=== PATIENT | male | born 1965 | race American Indian/Alaskan Native ===

== ENCOUNTER 2016-09-23 04:42 | Emergency (ER) | payer MEDICAID ==
[2016-09-23 04:43] VITALS: BMI 22.9
[2016-09-23 04:52] VITALS: BP 141/104; PULSE 113; RESP 18; TEMP 98; O2SAT 97
== END 2016-09-23 04:58 | disposition left against medical advice (07) ==
LOC: H.ER 04:42
DX: Z02.89 Encounter for other administrative examinations (principal)

== ENCOUNTER 2016-10-23 16:57 | Emergency (ER) | payer MEDICAID ==
[2016-10-23 16:57] VITALS: BMI 22.9
[2016-10-23 17:07] VITALS: BP 130/89; PULSE 110; RESP 20; TEMP 98.2; O2SAT 98
--- NOTE | 2016-10-23 17:33 | ED PDOC ---
HPI: Psych/Substance Abuse Time Seen by Provider: 10/23/16 17:01 Chief Complaint (Nursing): Alcohol Ingestion Chief Complaint (Provider): alcohol ingestion History Per: Patient (51 y/o male h/o Alcohol abuse here for slurred speech/ altered mentation. Patient was found with bottles of gin. As per EMS, patient was with brother who notes patient has h/o slurred speech and possible h/o stroke. Patient denies having a brother and denies having h/o stroke. Would like to be discharged home.) Past Medical History Reviewed: Historical Data, Nursing Documentation, Vital Signs Vital Signs: Last Vital Signs Temp 98.2 F 10/23/16 17:00 Pulse 110 H 10/23/16 17:00 Resp 20 10/23/16 17:00 BP 130/89 10/23/16 17:00 Pulse Ox 98 10/23/16 17:00 - Medical History PMH: Asthma, Depression, Diabetes, Gastritis, Gastrointestinal Ulcer, HTN, Pneumonia, Seizures - Surgical History Surgical History: Endoscopy - Family History Family History: States: Unknown Family Hx - Immunization History Hx Tetanus Toxoid Vaccination: No Hx Influenza Vaccination: Yes Hx Pneumococcal Vaccination: No - Home Medications Home Medications: Ambulatory Orders Medication Instructions Recorded No Known Home Med [No Known Home 04/15/14 Med] cloNIDine [clonidine HCl] 0.2 mg PO DAILY 01/05/16 - Allergies Allergies/Adverse Reactions: Allergies Allergy/AdvReac Type Severity Reaction Status Date / Time No Known Allergies Allergy Verified 03/16/16 18:08 Review of Systems ROS Statement: Except As Marked, All Systems Reviewed And Found Negative Physical Exam - Reviewed Nursing Documentation Reviewed: Yes Vital Signs Reviewed: Yes - Physical Exam Appears: Positive for: Well, Non-toxic, No Acute Distress Head Exam: Positive for: ATRAUMATIC, NORMAL INSPECTION, NORMOCEPHALIC Skin: Positive for: Normal Color, Warm, DRY Eye Exam: Positive for: EOMI, Normal appearance, PERRL ENT: Positive for: Normal ENT Inspection Neck: Positive for: Normal, Painless ROM Cardiovascular/Chest: Positive for: Regular Rate, Rhythm Respiratory: Positive for: CNT, Normal Breath Sounds Gastrointestinal/Abdominal: Positive for: Normal Exam, Bowel Sounds, Soft Back: Positive for: Normal Inspection Extremity: Positive for: Normal ROM Neurologic/Psych: Positive for: Alert, Oriented - ECG O2 Sat by Pulse Oximetry: 98 - Progress ED Course And Treament: Patient noted steady with gait. (Walks with cane regularly) Disposition - Clinical Impression Clinical Impression: Alcohol ingestion - Patient ED Disposition Is Patient to be Admitted: No - Disposition Disposition: Routine/Home Disposition Time: 19:28 Condition: FAIR Instructions: Alcohol Intoxication (DC)
== END 2016-10-23 19:20 | disposition home or self-care (01) ==
LOC: H.ER 16:57
DX: F10.10 Alcohol abuse, uncomplicated (principal)

== ENCOUNTER 2016-11-02 23:37 | Observation (INO) | payer MEDICAID ==
[2016-11-02 23:38] VITALS: BMI 22.9
--- NOTE | 2016-11-03 00:17 | ED PDOC ---
HPI: Psych/Substance Abuse Time Seen by Provider: 11/02/16 23:41 Chief Complaint (Nursing): Alcohol Ingestion Chief Complaint (Provider): Alcohol Ingestion ED Caveat: Intoxicated (ETOH) History/Exam Limitations: intoxication (ETOH) Onset/Duration Of Symptoms: Mins (prior to arrival) Current Symptoms Are (Timing): Still Present Additional Complaint(s): Fermin Majano is a 51 year old male who presents to the emergency department via EMS for an evaluation after he was found publicly intoxicated on the street. Unable to acquire further medical information due to intoxicated state. Patient is also well known to ED for similar symptoms. PMD: none provided Past Medical History Reviewed: Historical Data, Nursing Documentation, Vital Signs Vital Signs: Last Vital Signs Temp 98 F 11/02/16 23:47 Pulse 94 H 11/02/16 23:47 Resp 16 11/02/16 23:47 BP 115/75 11/02/16 23:47 Pulse Ox 100 11/02/16 23:47 - Medical History PMH: Asthma, Depression, Diabetes, Gastritis, Gastrointestinal Ulcer, HTN, Pneumonia, Seizures - Surgical History Surgical History: Endoscopy - Family History Family History: States: Unknown Family Hx - Social History Current smoker - smoking cessation education provided: Yes Alcohol: > 2 Drinks/Day Drugs: Denies - Immunization History Hx Tetanus Toxoid Vaccination: No Hx Influenza Vaccination: Yes Hx Pneumococcal Vaccination: No - Home Medications Home Medications: Ambulatory Orders Medication Instructions Recorded No Known Home Med [No Known Home 04/15/14 Med] cloNIDine [clonidine HCl] 0.2 mg PO DAILY 01/05/16 - Allergies Allergies/Adverse Reactions: Allergies Allergy/AdvReac Type Severity Reaction Status Date / Time No Known Allergies Allergy Verified 11/02/16 23:47 Review of Systems Review Of Systems: ROS cannot be obtained secondary to pt's inabilty to answer questions. (ETOH intoxication) Physical Exam - Reviewed Nursing Documentation Reviewed: Yes Vital Signs Reviewed: Yes - Physical Exam Appears: Positive for: Well (but intoxicated), Non-toxic, No Acute Distress Head Exam: Positive for: ATRAUMATIC, NORMAL INSPECTION, NORMOCEPHALIC Skin: Positive for: Normal Color, Warm, DRY Cardiovascular/Chest: Positive for: Regular Rate, Rhythm Respiratory: Positive for: Normal Breath Sounds Neurologic/Psych: Positive for: Alert (only to person), Other (slurred speech) - ECG O2 Sat by Pulse Oximetry: 100 (RA) Pulse Ox Interpretation: Normal Medical Decision Making Medical Decision Making: Initial Impression: ETOH abuse Initial Plan: * Alcohol serum * Drug screen, urine * Accucheck * ED OBS Scribe Attestation: Documented by Yue Briggs, acting as a scribe for Brant Crystal MD. Provider Scribe Attestation: All medical record entries made by the Scribe were at my direction and personally dictated by me. I have reviewed the chart and agree that the record accurately reflects my personal performance of the history, physical exam, medical decision making, and the department course for this patient. I have also personally directed, reviewed, and agree with the discharge instructions and disposition.
[2016-11-03 00:38] LABS: BARBITURATES, UR NEGATIVE (NEGATIVE); BENZODIAZEPINES, UR POSITIVE (NEGATIVE); OPIATES, UR NEGATIVE (NEGATIVE); PHENCYCLIDINE, UR NEGATIVE (NEGATIVE)
--- NOTE | 2016-11-03 01:18 | ED PDOC ---
HPI: Psych/Substance Abuse Time Seen by Provider: 11/02/16 23:41 Chief Complaint (Nursing): Alcohol Ingestion Chief Complaint (Provider): Alcohol Ingestion ED Caveat: Intoxicated (ETOH) History Per: EMS History/Exam Limitations: intoxication (ETOH) Onset/Duration Of Symptoms: Mins (prior to arrival) Current Symptoms Are (Timing): Still Present Additional Complaint(s): Fermin Majano is a 51 year old male with previous medical history of ETOH abuse, who presents to the emergency department via EMS after he was found publicly intoxicated. Unable to obtain further medical history due to patient's intoxicated state. Patient is well known to ED. PMD: none provided Past Medical History Reviewed: Nursing Documentation, Vital Signs Vital Signs: Last Vital Signs Temp 98 F 11/02/16 23:47 Pulse 94 H 11/02/16 23:47 Resp 16 11/02/16 23:47 BP 115/75 11/02/16 23:47 Pulse Ox 100 11/02/16 23:47 - Medical History PMH: Asthma, Depression, Diabetes, Gastritis, Gastrointestinal Ulcer, HTN, Pneumonia, Seizures - Surgical History Surgical History: Endoscopy - Family History Family History: States: Unknown Family Hx - Social History Current smoker - smoking cessation education provided: Yes Alcohol: > 2 Drinks/Day Drugs: Denies - Immunization History Hx Tetanus Toxoid Vaccination: No Hx Influenza Vaccination: Yes Hx Pneumococcal Vaccination: No - Home Medications Home Medications: Ambulatory Orders Medication Instructions Recorded No Known Home Med [No Known Home 04/15/14 Med] cloNIDine [clonidine HCl] 0.2 mg PO DAILY 01/05/16 - Allergies Allergies/Adverse Reactions: Allergies Allergy/AdvReac Type Severity Reaction Status Date / Time No Known Allergies Allergy Verified 11/02/16 23:47 Review of Systems Review Of Systems: ROS cannot be obtained secondary to pt's inabilty to answer questions. (ETOH intoxication) Physical Exam - Reviewed Nursing Documentation Reviewed: Yes Vital Signs Reviewed: Yes - Physical Exam Appears: Positive for: Well (but intoxicated), Non-toxic, No Acute Distress Head Exam: Positive for: ATRAUMATIC, NORMAL INSPECTION, NORMOCEPHALIC Skin: Positive for: Normal Color, Warm, DRY Cardiovascular/Chest: Positive for: Regular Rate, Rhythm Respiratory: Positive for: CNT, Normal Breath Sounds Neurologic/Psych: Positive for: Alert (only to person), Other (slurred speech) - ECG O2 Sat by Pulse Oximetry: 100 (RA) Pulse Ox Interpretation: Normal Medical Decision Making Medical Decision Making: Initial Impression: ETOH intoxication Initial Plan: * [place] * ED OBS Time: 07:00 --Patient signed out to Dr. Denise Mak. Pending clinical sobriety. Scribe Attestation: Documented by Yue Briggs, acting as a scribe for Brant Crystal MD. Provider Scribe Attestation: All medical record entries made by the Scribe were at my direction and personally dictated by me. I have reviewed the chart and agree that the record accurately reflects my personal performance of the history, physical exam, medical decision making, and the department course for this patient. I have also personally directed, reviewed, and agree with the discharge instructions and disposition. ED OBSERVATION Date of observation admission: 11/03/16 Time of observation admission: 23:53 - Observation admission statement Patient is being placed in observation because:: ETOH intoxication - Goals of Observation Goals of observation are:: Clinical sobriety - Progress Note Progress Note: Time: 01:30 --Patient is resting comfortably and vitals signs are stable. Time: 3:00 --Patient continues to rest comfortably. Vitals remain stable. Time: 04:30 --Vitals are stable. Time: 06:00 --Vitals remain stable. Disposition - Clinical Impression Clinical Impression: ETOH abuse - Patient ED Disposition Is Patient to be Admitted: Transfer of Care - Disposition Disposition: Transfer of Care Disposition Time: 23:53 Condition: IMPROVED Patient Signed Over To: Denise Mak
[2016-11-03 06:15] VITALS: RESP 18
[2016-11-03 06:23] VITALS: O2SAT 100
--- NOTE | 2016-11-03 07:20 | ED PDOC ---
- ECG O2 Sat by Pulse Oximetry: 100 (RA) Pulse Ox Interpretation: Normal Medical Decision Making Medical Decision Making: Time: 07:00 --Patient is signed out by Brant Crystal MD to me, pending sobriety Time: 07:30 --Patient continues to rest comfortably. Vitals remain stable. Time: 09:00 --Patient continues to rest comfortably. Vital signs remain stable. Time: 10:30 --Patient continues to rest comfortably. Vitals remain stable. Time: 12:00 --Patient is resting comfortably. Vital signs remain stable. Time: 13:53 --Patient is clinically sober, medically stable, sober, ambulating awake and alert, stable vitals and ready for discharge home. Scribe Attestation: Documented by Luann Anderson, acting as a scribe for Denise Mak MD Provider Scribe Attestation: All medical record entries made by the Scribe were at my direction and personally dictated by me. I have reviewed the chart and agree that the record accurately reflects my personal performance of the history, physical exam, medical decision making, and the department course for this patient. I have also personally directed, reviewed, and agree with the discharge instructions and disposition. Disposition Counseled Patient/Family Regarding: Diagnosis, Need For Followup - Clinical Impression Clinical Impression: ETOH abuse - POA Present On Arrival: None - Disposition Disposition: Routine/Home Disposition Time: 13:53 Condition: IMPROVED
[2016-11-03 13:32] VITALS: BP 150/97; PULSE 89; TEMP 98.5
== END 2016-11-03 14:23 | disposition home or self-care (01) ==
LOC: H.ER 23:37 → H.EROBSV 23:57
PROVIDERS: ADMIT Emergency Medicine; ATTEND Emergency Medicine
DX: F10.129 Alcohol abuse with intoxication, unspecified (principal); Y90.9 Presence of alcohol in blood, level not specified; E11.9 Type 2 diabetes mellitus without complications; I10 Essential (primary) hypertension; J45.909 Unspecified asthma, uncomplicated; Z87.11 Personal history of peptic ulcer disease; F32.9 Major depressive disorder, single episode, unspecified; Z87.01 Personal history of pneumonia (recurrent); R56.9 Unspecified convulsions; F17.200 Nicotine dependence, unspecified, uncomplicated

== ENCOUNTER 2016-11-21 01:36 | Inpatient (IN) | payer MEDICAID ==
[2016-11-21 01:36] VITALS: BMI 22.9
[2016-11-21] MEDS ORDERED: Sodium Chloride 0.9% 1,000 ML IV STA (01:51)
[2016-11-21] MEDS ORDERED: Sterile Water 10 ML IV ONE (01:56)
[2016-11-21 02:39] LABS: BASO # 0.1 K/uL (0.0-0.2); BASO % 2.7 % (0.0-2.0); EOS % 0.4 % (0.0-4.0); HEMOGLOBIN 12.9 g/dL (12.0-18.0); LYMPH # 1.3 K/uL (1.0-4.3); LYMPH % 41.5 % (20.0-40.0); MEAN CELL VOLUME 99.1 fl (80.0-94.0); MEAN CORPUSCULAR HEMOGLOBIN 33.6 pg (27.0-31.0); MEAN CORPUSCULAR HGB CONC 33.9 g/dL (33.0-37.0); MEAN PLATELET VOLUME 7.6 fl (7.2-11.7); MONO # 0.4 K/uL (0.0-0.8); MONO % 10.8 % (0.0-10.0); NEUT # 1.4 K/uL (1.8-7.0); NEUT % 44.6 % (50.0-75.0); RBC 3.85 Mil/uL (4.40-5.90); RED CELL DISTRIBUTION WIDTH 18.7 % (11.5-14.5); WHITE BLOOD COUNT 3.2 K/uL (4.8-10.8)
[2016-11-21 03:11] LABS: BLOOD UREA NITROGEN 4 mg/dl (9-20)
[2016-11-21 03:12] LABS: ALB/GLOB RATIO 1.2 (1.0-2.1); ALBUMIN 4.6 g/dL (3.5-5.0); CALCIUM 8.7 mg/dL (8.4-10.2); GFR AFRICAN-AMERICAN > 60; GFR NON-AFRICAN AMERICAN > 60
[2016-11-21 03:13] LABS: ALT/SGPT 90 U/L (21-72); AST/SGOT 160 U/L (17-59); LIPASE 466 U/L (23-300)
--- NOTE | 2016-11-21 04:15 | ED PDOC ---
HPI: Abdomen Time Seen by Provider: 11/21/16 01:50 Chief Complaint (Nursing): GI Problem Chief Complaint (Provider): Vomiting blood x 3 hours History Per: Patient History/Exam Limitations: no limitations Onset/Duration Of Symptoms: Hrs Outside of [place] travel?: No Current Symptoms Are (Timing): Still Present Context: Other (Alcohol abuse ) Location Of Pain/Discomfort: Epigastric Quality Of Discomfort: Sharp Associated Symptoms: Nausea, Vomiting. denies: Fever, Chills, Loss Of Appetite Past Medical History Reviewed: Historical Data, Nursing Documentation, Vital Signs Vital Signs: Last Vital Signs Temp 98.0 F 11/21/16 06:05 Pulse 88 11/21/16 06:05 Resp 16 11/21/16 06:05 BP 141/89 11/21/16 06:05 Pulse Ox 97 11/21/16 06:05 - Medical History PMH: Asthma, Depression, Diabetes, Gastritis, Gastrointestinal Ulcer, HTN, Pneumonia, Seizures - Surgical History Surgical History: Endoscopy - Family History Family History: States: Unknown Family Hx - Immunization History Hx Tetanus Toxoid Vaccination: No Hx Influenza Vaccination: Yes Hx Pneumococcal Vaccination: No - Home Medications Home Medications: Ambulatory Orders Medication Instructions Recorded No Known Home Med [No Known Home 04/15/14 Med] cloNIDine [clonidine HCl] 0.2 mg PO DAILY 01/05/16 - Allergies Allergies/Adverse Reactions: Allergies Allergy/AdvReac Type Severity Reaction Status Date / Time No Known Allergies Allergy Verified 11/02/16 23:47 Review of Systems ROS Statement: Except As Marked, All Systems Reviewed And Found Negative Constitutional: Negative for: Fever, Chills Gastrointestinal: Positive for: Nausea, Vomiting, Abdominal Pain Physical Exam - Reviewed Nursing Documentation Reviewed: Yes Vital Signs Reviewed: Yes - Physical Exam Appears: Positive for: Well, Non-toxic, No Acute Distress Head Exam: Positive for: ATRAUMATIC, NORMAL INSPECTION, NORMOCEPHALIC Skin: Positive for: Normal Color, Warm, DRY Eye Exam: Positive for: Normal appearance, EOMI, PERRL ENT: Positive for: Normal ENT Inspection Neck: Positive for: Normal, Painless ROM Cardiovascular/Chest: Positive for: Regular Rate, Rhythm Respiratory: Positive for: CNT, Normal Breath Sounds Gastrointestinal/Abdominal: Positive for: Bowel Sounds, Soft, Tenderness (Mild epigastric ). Negative for: Normal Exam Back: Positive for: Normal Inspection Extremity: Positive for: Normal ROM Neurologic/Psych: Positive for: Alert, Oriented - Laboratory Results Result Diagrams: 11/21/16 02:35 11/21/16 02:35 - ECG O2 Sat by Pulse Oximetry: 100 Medical Decision Making Medical Decision Making: Dr. Chicas discussed with Dr. Madison for observation admission. Disposition - Clinical Impression Clinical Impression: Pancreatitis, Alcohol abuse - Patient ED Disposition Is Patient to be Admitted: Yes - Disposition Disposition: Routine/Home Disposition Time: 06:12 Condition: GOOD - Pt Status Changed To: Hospital Disposition Of: Observation - POA Present On Arrival: None
[2016-11-21] MEDS ORDERED: Iohexol 300 100 ML IJ ONE (04:17)
[2016-11-21] MEDS ORDERED: Sodium Chloride 0.9% 50 ML IV ONE (04:18)
--- NOTE | 2016-11-21 05:33 | CT ---
EXAM: CT Abdomen and Pelvis With Intravenous Contrast CLINICAL HISTORY: 51 years old, male; Pain; Abdominal pain; Epigastric; Additional info: Epigastric pain, elevated lipase, HX ETOH abuse TECHNIQUE: Axial computed tomography images of the abdomen and pelvis with intravenous contrast. This CT exam was performed using one or more of the following dose reduction techniques: automated exposure control, adjustment of the mA and/or kV according to patient size, and/or use of iterative reconstruction technique. Coronal and sagittal reformatted images were created and reviewed. CONTRAST: 90 mL of [id number] administered intravenously. COMPARISON: No relevant prior studies available. FINDINGS: Limitations: Motion artifact - mild. Lower thorax: Minimal atelectasis/scarring. 0.6 cm LEFT lower lobe nodule. ABDOMEN: Liver: Fatty infiltration. Gallbladder and bile ducts: No calcified stones. No ductal dilation. Pancreas: Mild prominence of proximal pancreatic duct. Mild fullness tail of pancreas. Spleen: No splenomegaly. Adrenals: No mass. Kidneys and ureters: No mass. No hydronephrosis. Stomach and bowel: Segmental areas of mild mural thickening vs underdistention of large bowel. No associated inflammatory stranding. No obstruction. Appendix: Normal caliber. No inflammation. PELVIS: Bladder: Unremarkable. Reproductive: Mildly enlarged prostate. ABDOMEN and PELVIS: Intraperitoneal space: No significant fluid collection. No free air. Bones/joints: Postsurgical changes of RIGHT femur. Degenerative changes of hips and spine. No acute fracture. Soft tissues: Unremarkable. Vasculature: Unremarkable. No aneurysm. Lymph nodes: No pathologically enlarged lymph nodes. IMPRESSION: 2. Mild prominence of pancreatic duct with fullness tail of pancreas. Clinical correlation is needed. 2. Mild colitis vs underdistention. Favor underdistention. Clinical correlation is needed. 3. Prostate enlargement. Followup as clinically warranted. 4. Pulmonary nodules. For low-risk patients, no follow-up is necessary. For high-risk patients (smoking history or other known risk factors) an optional CT at 12 months could be performed. 5. Incidental/non-acute findings are described above.
[2016-11-21] MEDS ORDERED: Morphine 4 MG/ML VIAL IV STA (06:12)
[2016-11-21] MEDS ORDERED: Morphine 4 MG/ML VIAL ONE (06:34)
[2016-11-21] MEDS ORDERED: Pneumococcal 23-Valent Vaccine IM ONE (09:43)
[2016-11-21] MEDS: Dextrose 5%/0.9% NS 1,000 ML IV SCH ×3 (11:17→23:48)
--- NOTE | 2016-11-21 21:52 | CON ---
DATE OF SERVICE: 11/21/2016 REFERRING PHYSICIAN: *------* REASON FOR CONSULTATION: Pancreatitis, abdominal pain. HISTORY OF PRESENT ILLNESS: This is a 51-year-old poor historian with a history of alcohol use and abuse, last drink was yesterday with high alcohol level on admission, has epigastric discomfort with some nausea and vomiting. The patient cannot give a good history, but has been drinking heavily, frequently, often, and daily, currently lying in bed comfortably and wants his "pain pills" and "I want some food." No apparent distress. PAST MEDICAL HISTORY: Asthma, depression, diabetes, gastritis, hypertension, pneumonia, seizures. PAST SURGICAL HISTORY: Negative. FAMILY HISTORY: Noncontributory. REVIEW OF SYSTEMS: All other systems have been reviewed and negative apart from HPI. PHYSICAL EXAMINATION: VITAL SIGNS: In the hospital, grossly unremarkable. GENERAL: Pleasant, elderly appearing male, lying comfortably on bed, in no apparent distress. HEENT: Normocephalic, atraumatic. Eyes, pupils equal, round, and reactive to light bilaterally. No conjunctival pallor or icterus. NECK: Supple. Normal range of motion. No lymphadenopathy appreciated. LUNGS: Coarse breath sounds bilaterally. HEART: S1, S2, regular rate and rhythm. No murmurs appreciated. ABDOMEN: Soft, nontender, bowel sounds present. No rebound. No guarding. RECTAL: Deferred. EXTREMITIES: Pulses felt bilaterally. SKIN: Warm, dry, and intact. NEUROLOGIC: A and O x3. Radiology and labs have been reviewed. Mild problem with pancreatic duct and tail of the pancreas, mild collaterals and distention, pulmonary nodules. Labs include WBC 3.3, hemoglobin 12.9, platelet count of 207, alcohol was positive, lipase is 466, AST/ALT of *------*. ASSESSMENT AND PLAN: This is a 51-year-old male with alcoholic pancreatitis. Aggressive IV hydration, pain control as needed. Advance diet as tolerated. Thank you for the consult. Bandar Hernandes MD/ PhD
--- NOTE | 2016-11-21 23:17 | CP.PCM.HP ---
Past Patient History - Infectious Disease Hx of Infectious Diseases: None - Tetanus Immunizations Tetanus Immunization: Unknown - Past Medical History & Family History Past Medical History?: Yes - Past Social History Smoking Status: Never Smoked - CARDIAC Hx Hypertension: Yes - PULMONARY Hx Asthma: Yes Hx Pneumonia: Yes - NEUROLOGICAL Hx Seizures: Yes - HEENT Hx HEENT Problems: No - ENDOCRINE/METABOLIC Hx Endocrine Disorders: No - HEMATOLOGICAL/ONCOLOGICAL Hx Blood Disorders: No - INTEGUMENTARY Hx Dermatological Problems: No - MUSCULOSKELETAL/RHEUMATOLOGICAL Hx Falls: No - GASTROINTESTINAL Hx Gastritis: Yes - GENITOURINARY/GYNECOLOGICAL Hx Genitourinary Disorders: No - PSYCHIATRIC Hx Depression: Yes - SURGICAL HISTORY Hx Surgeries: Yes - ANESTHESIA Hx Anesthesia: Yes Hx Anesthesia Reactions: No Hx Malignant Hyperthermia: No Meds Allergies/Adverse Reactions: Allergies Allergy/AdvReac Type Severity Reaction Status Date / Time No Known Allergies Allergy Verified 11/02/16 23:47 Results - Vital Signs Recent Vital Signs: Last Vital Signs Temp 98.4 F 11/21/16 16:09 Pulse 93 H 11/21/16 16:24 Resp 18 11/21/16 16:09 BP 143/85 11/21/16 16:24 Pulse Ox 98 11/21/16 16:09 - Labs Result Diagrams: 11/21/16 02:35 11/21/16 02:35 Labs: Laboratory Results - last 24 hr 11/21/16 11/21/16 11:39 11:39 Alpha Fetoprotein 7.1 Carcinoembryonic Ag 29.2 H CA 19-9 Antigen < 1.4
[2016-11-22] MEDS: Dextrose 5%/0.9% NS 1,000 ML IV SCH (06:48)
[2016-11-22 07:46] LABS: BASO % 0.7 % (0.0-2.0); EOS % 0.2 % (0.0-4.0); HEMOGLOBIN 12.3 g/dL (12.0-18.0); LYMPH # 0.7 K/uL (1.0-4.3); LYMPH % 15.7 % (20.0-40.0); MEAN CELL VOLUME 99.8 fl (80.0-94.0); MEAN CORPUSCULAR HEMOGLOBIN 33.8 pg (27.0-31.0); MEAN CORPUSCULAR HGB CONC 33.9 g/dL (33.0-37.0); MEAN PLATELET VOLUME 7.9 fl (7.2-11.7); MONO # 0.4 K/uL (0.0-0.8); MONO % 9.5 % (0.0-10.0); NEUT # 3.2 K/uL (1.8-7.0); NEUT % 73.9 % (50.0-75.0); RBC 3.62 Mil/uL (4.40-5.90); RED CELL DISTRIBUTION WIDTH 18.3 % (11.5-14.5); WHITE BLOOD COUNT 4.3 K/uL (4.8-10.8)
[2016-11-22 07:47] LABS: ALB/GLOB RATIO 1.3 (1.0-2.1); ALBUMIN 4.1 g/dL (3.5-5.0); ALT/SGPT 82 U/L (21-72); AST/SGOT 113 U/L (17-59); BLOOD UREA NITROGEN 3 mg/dl (9-20); CALCIUM 8.2 mg/dL (8.4-10.2); GFR AFRICAN-AMERICAN > 60; GFR NON-AFRICAN AMERICAN > 60
[2016-11-22] MEDS ORDERED: Enoxaparin 40 mg Syringe SC SCH (09:00)
[2016-11-22] MEDS: Pantoprazole 40 mg EC Tab PO SCH (09:45)
--- NOTE | 2016-11-22 23:44 | CP.PCM.PN ---
Subjective - Date & Time of Evaluation Date of Evaluation: 11/22/16 Time of Evaluation: 23:35 Objective - Vital Signs/Intake and Output Vital Signs (last 24 hours): Temp Pulse Resp BP Pulse Ox 98.7 F 81 18 123/76 100 11/22/16 16:19 11/22/16 16:19 11/22/16 16:19 11/22/16 18:04 11/22/16 16:19 - Medications Medications: Current Medications Chlordiazepoxide (Librium) 10 mg PO Q6 [facility] Last Admin: 11/22/16 21:22 Dose: 10 mg Clonidine HCl (Catapres) 0.2 mg PO BID [facility] Last Admin: 11/22/16 18:04 Dose: 0.2 mg Folic Acid (Folic Acid) 1 mg PO DAILY [facility] Last Admin: 11/22/16 09:45 Dose: 1 mg Ketorolac Tromethamine (Toradol) 15 mg IVP Q6 PRN PRN Reason: Pain, severe (8-10) Last Admin: 11/22/16 18:01 Dose: 15 mg Loratadine (Claritin) 10 mg PO DAILY [facility] Last Admin: 11/22/16 13:40 Dose: 10 mg Pantoprazole Sodium (Protonix Ec Tab) 40 mg PO DAILY [facility] Last Admin: 11/22/16 09:45 Dose: 40 mg Thiamine HCl (Vitamin B1 Tab) 100 mg PO DAILY [facility] Last Admin: 11/22/16 09:45 Dose: 100 mg - Labs Labs: 11/22/16 05:30 11/22/16 05:30
[2016-11-23 08:39] VITALS: O2SAT 100
[2016-11-23] MEDS: Pantoprazole 40 mg EC Tab PO SCH (08:56)
--- NOTE | 2016-11-23 19:08 | CP.PCM.PN ---
Subjective - Date & Time of Evaluation Date of Evaluation: 11/23/16 Time of Evaluation: 19:00 Objective - Vital Signs/Intake and Output Vital Signs (last 24 hours): Temp Pulse Resp BP Pulse Ox 98.4 F 65 20 144/89 100 11/23/16 08:39 11/23/16 17:54 11/23/16 08:39 11/23/16 17:54 11/23/16 08:39 - Medications Medications: Current Medications Chlordiazepoxide (Librium) 10 mg PO Q6 [facility] Last Admin: 11/23/16 17:57 Dose: 10 mg Clonidine HCl (Catapres) 0.2 mg PO BID [facility] Last Admin: 11/23/16 17:54 Dose: 0.2 mg Folic Acid (Folic Acid) 1 mg PO DAILY [facility] Last Admin: 11/23/16 08:56 Dose: 1 mg Ketorolac Tromethamine (Toradol) 15 mg IVP Q6 PRN PRN Reason: Pain, severe (8-10) Last Admin: 11/23/16 17:50 Dose: 15 mg Loratadine (Claritin) 10 mg PO DAILY [facility] Last Admin: 11/23/16 08:56 Dose: 10 mg Pantoprazole Sodium (Protonix Ec Tab) 40 mg PO DAILY [facility] Last Admin: 11/23/16 08:56 Dose: 40 mg Thiamine HCl (Vitamin B1 Tab) 100 mg PO DAILY [facility] Last Admin: 11/23/16 08:56 Dose: 100 mg - Labs Labs: 11/22/16 05:30 11/22/16 05:30
[2016-11-24 08:07] VITALS: BP 166/98; PULSE 58; RESP 20; TEMP 97.9
[2016-11-24] MEDS: Pantoprazole 40 mg EC Tab PO SCH (09:06)
--- NOTE | 2016-11-24 23:59 | CP.PCM.DIS ---
Provider - Provider Date of Admission: 11/21/16 06:13 Attending physician: Abida Madison MD Time Spent in preparation of Discharge (in minutes): 25 Hospital Course - Lab Results Lab Results: Most Recent Lab Values WBC 4.3 K/uL (4.8-10.8) L 11/22/16 05:30 RBC 3.62 Mil/uL (4.40-5.90) L 11/22/16 05:30 Hgb 12.3 g/dL (12.0-18.0) 11/22/16 05:30 Hct 36.2 % (35.0-51.0) 11/22/16 05:30 MCV 99.8 fl (80.0-94.0) H 11/22/16 05:30 MCH 33.8 pg (27.0-31.0) H 11/22/16 05:30 MCHC 33.9 g/dL (33.0-37.0) 11/22/16 05:30 RDW 18.3 % (11.5-14.5) H 11/22/16 05:30 Plt Count 177 K/uL (130-400) 11/22/16 05:30 MPV 7.9 fl (7.2-11.7) 11/22/16 05:30 Neut % (Auto) 73.9 % (50.0-75.0) 11/22/16 05:30 Lymph % (Auto) 15.7 % (20.0-40.0) L 11/22/16 05:30 Angelina % (Auto) 9.5 % (0.0-10.0) 11/22/16 05:30 Eos % (Auto) 0.2 % (0.0-4.0) 11/22/16 05:30 Baso % (Auto) 0.7 % (0.0-2.0) 11/22/16 05:30 Neut # 3.2 K/uL (1.8-7.0) 11/22/16 05:30 Lymph # 0.7 K/uL (1.0-4.3) L 11/22/16 05:30 Angelina # 0.4 K/uL (0.0-0.8) 11/22/16 05:30 Eos # 0.0 K/uL (0.0-0.7) 11/22/16 05:30 Baso # 0.0 K/uL (0.0-0.2) 11/22/16 05:30 Sodium 131 mmol/l (132-148) L 11/22/16 05:30 Potassium 3.6 MMOL/L (3.6-5.0) 11/22/16 05:30 Chloride 99 mmol/L (98-107) 11/22/16 05:30 Carbon Dioxide 25 mmol/L (22-30) 11/22/16 05:30 Anion Gap 11 (10-20) 11/22/16 05:30 BUN 3 mg/dl (9-20) L 11/22/16 05:30 Creatinine 0.6 mg/dL (0.8-1.5) L 11/22/16 05:30 Est GFR ( Amer) > 60 11/22/16 05:30 Est GFR (Non-Af Amer) > 60 11/22/16 05:30 Random Glucose 103 mg/dL (75-110) 11/22/16 05:30 Calcium 8.2 mg/dL (8.4-10.2) L 11/22/16 05:30 Total Bilirubin 0.9 mg/dl (0.2-1.3) 11/22/16 05:30 AST 113 U/L (17-59) H D 11/22/16 05:30 ALT 82 U/L (21-72) H 11/22/16 05:30 Alkaline Phosphatase 63 U/L (38-126) 11/22/16 05:30 Total Protein 7.2 G/DL (6.3-8.2) 11/22/16 05:30 Albumin 4.1 g/dL (3.5-5.0) 11/22/16 05:30 Globulin 3.1 gm/dL (2.2-3.9) 11/22/16 05:30 Albumin/Globulin Ratio 1.3 (1.0-2.1) 11/22/16 05:30 Lipase 466 U/L (23-300) H 11/21/16 02:35 Alpha Fetoprotein 7.1 IU/mL (0.0-7.22) 11/21/16 11:39 Carcinoembryonic Ag 29.2 ng/mL (0-3.0) H 11/21/16 11:39 CA 19-9 Antigen < 1.4 U/mL (0-37) 11/21/16 11:39 Stool Occult Blood Positive (NEGATIVE) H 11/21/16 06:05 Alcohol, Quantitative 395 mg/dl (0-10) H* 11/21/16 02:35 Discharge Exam - Head Exam Head Exam: ATRAUMATIC, NORMAL INSPECTION, NORMOCEPHALIC Discharge Plan - Follow Up Plan Condition: GOOD Disposition: HOME/ ROUTINE Instructions: Pancreatitis (DC)
--- NOTE | 2016-11-26 21:47 | CP.PCM.PN ---
Subjective - Date & Time of Evaluation Date of Evaluation: 11/24/16 Time of Evaluation: 20:00 - Subjective Subjective: pain improved Objective - Vital Signs/Intake and Output Vital Signs (last 24 hours): Temp Pulse Resp BP Pulse Ox 97.9 F 58 L 20 166/98 H 100 11/24/16 08:06 11/24/16 09:03 11/24/16 08:06 11/24/16 09:03 11/24/16 08:06 - Labs Labs: 11/22/16 05:30 11/22/16 05:30 - GI/Abdominal Exam GI & Abdominal Exam: Soft, Normal Bowel Sounds Assessment and Plan - Assessment and Plan (Free Text) Assessment: 51 yo male with etoh pancreatitis advance diet dc planning
== END 2016-11-24 10:00 | disposition home or self-care (01) | DRG 204 ==
LOC: H.ER 01:36 → OBSVTOIN 06:13 → H.ERHOLD 06:13 → H.MEDSURG1 08:39
PROVIDERS: ADMIT Internal Medicine; ATTEND Internal Medicine
PROC: 3E0234Z Introduction of Serum, Toxoid and Vaccine into Muscle, Percutaneous Approach (ICD-10-PCS; principal; 2016-11-21)
DX: K85.20 Alcohol induced acute pancreatitis without necrosis or infection (principal); R56.9 Unspecified convulsions; E11.9 Type 2 diabetes mellitus without complications; F10.129 Alcohol abuse with intoxication, unspecified; Y90.8 Blood alcohol level of 240 mg/100 ml or more; I10 Essential (primary) hypertension; K29.70 Gastritis, unspecified, without bleeding; J45.909 Unspecified asthma, uncomplicated; F32.9 Major depressive disorder, single episode, unspecified; Z23 Encounter for immunization; Z87.11 Personal history of peptic ulcer disease; Z87.01 Personal history of pneumonia (recurrent)

== ENCOUNTER 2017-05-30 18:52 | Emergency (ER) | payer MEDICAID ==
[2017-05-30 18:53] VITALS: BMI 22.9
[2017-05-30 18:57] VITALS: RESP 16
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
--- NOTE | 2017-05-30 21:06 | RAD ---
EXAM: XR Left Hip With Pelvis When Performed, 2 or 3 Views CLINICAL HISTORY: 52 years old, male; Injury or trauma; Fall; Initial encounter; Blunt trauma (contusions or hematomas); Left; Hip; Additional info: Hip injury TECHNIQUE: Two or three views of the left hip, with pelvis when performed. COMPARISON: No relevant prior studies available. FINDINGS: Bones/joints: No acute fracture. Postsurgical changes of right femur. Mild heterotopic ossification about right proximal femur. Severe degenerative changes of left hip joint. No dislocation. Focal ossification along left proximal femur, nonspecific. Soft tissues: Unremarkable. Vasculature: Several rounded calcifications within pelvis, most likely phleboliths. IMPRESSION: 1. No fracture. 2. If hip pain persists, consider MRI to exclude occult fracture/internal derangement. 3. Incidental/non-acute findings are described above.
--- NOTE | 2017-05-30 21:09 | RAD ---
EXAM: XR Left Knee, 3 views CLINICAL HISTORY: 52 years old, male; Injury or trauma; Fall; Initial encounter; Blunt trauma; Knee; Left; Prior surgery; Surgery date: 6+ months; Additional info: Knee injury TECHNIQUE: Three views of the left knee. COMPARISON: No relevant prior studies available. FINDINGS: Bones/joints: No acute fracture. Intramedullary nail fixation of tibia. Focal ossification/callus formation about mid tibial and fibular diaphyses. Focal ossification about anterior proximal tibia. Minimal ossification about distal interlocking screw. Fusion across proximal tibiofibular joint. Mild osteoarthrosis of patellofemoral compartment. No dislocation. No significant joint effusion. Soft tissues: Unremarkable. IMPRESSION: 1. No fracture. 2. If pain persists, suggest MRI to evaluate for occult fracture/internal arrangement. 3. Incidental/non-acute findings are described above.
--- NOTE | 2017-05-31 00:29 | ED PDOC ---
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 BAL is 315 1:30 am: patient is asleep, arousable. vital signs stable 3:30 am: patient is asleep, arousable, vital signs stable 4:30 am: patient is requesting pain medicine for his hip, motrin 600 mg PO ordered. 6:00 am: patient is awake and alert, has steady gait, stable for discharge Disposition - Clinical Impression Clinical Impression: Hip pain, Alcohol intoxication - POA Present On Arrival: None - Disposition Referrals: LTAC, [facility] within [facility] [Outside] Disposition: Routine/Home Disposition Time: 04:44 Condition: STABLE Instructions: Alcohol Intoxication (ED), Hip Pain (ED) Forms: [facility] (French)
[2017-05-31 06:35] VITALS: BP 118/74; PULSE 84; TEMP 98; O2SAT 96
== END 2017-05-31 06:36 | disposition home or self-care (01) ==
LOC: H.ER 18:52
DX: M25.552 Pain in left hip (principal); F10.129 Alcohol abuse with intoxication, unspecified; E11.9 Type 2 diabetes mellitus without complications; I10 Essential (primary) hypertension; Z86.59 Personal history of other mental and behavioral disorders; J45.909 Unspecified asthma, uncomplicated

== ENCOUNTER 2017-06-15 21:16 | Emergency (ER) | payer MEDICAID ==
[2017-06-15 21:16] VITALS: BMI 22.9
[2017-06-15 21:21] VITALS: PULSE 82; O2SAT 97
[2017-06-15 22:52] LABS: PHENCYCLIDINE, UR NEGATIVE (NEGATIVE)
[2017-06-15 23:03] LABS: BARBITURATES, UR NEGATIVE (NEGATIVE); BENZODIAZEPINES, UR NEGATIVE (NEGATIVE)
[2017-06-15 23:11] LABS: OPIATES, UR NEGATIVE (NEGATIVE)
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
--- NOTE | 2017-06-16 00:26 | CT ---
EXAM: CT Head Without Intravenous Contrast CLINICAL HISTORY: 52 years old, male; Injury or trauma; Fall; Initial encounter; Concussion / head injury; Consciousness not specified; Additional info: S/P fall, intox TECHNIQUE: Axial computed tomography images of the head/brain without intravenous contrast. All CT scans at this facility use one or more dose reduction techniques, viz.: automated exposure control; ma/kV adjustment per patient size (including targeted exams where dose is matched to indication; i.e. head); or iterative reconstruction technique. Coronal and sagittal reformatted images were created and reviewed. COMPARISON: No relevant prior studies available. FINDINGS: Brain: Mild atrophy. No intracranial hemorrhage. No mass. Few scattered foci of decreased attenuation within periventricular/subcortical white matter. No edema. Ventricles: No hydrocephalus. Bones/joints: No acute fracture. Soft tissues: Multifocal scalp swelling. Few small calcifications along frontal scalp. Sinuses: Mild focal mucosal thickening +/- fluid of LEFT maxillary sinus. Mastoid air cells: No mastoid effusion. Orbits: Unremarkable as visualized. IMPRESSION: 1. No intracranial hemorrhage. 2. Nonspecific white matter changes. 3. Incidental/non-acute findings are described above.
--- NOTE | 2017-06-16 00:31 | CT ---
EXAM: CT Cervical Spine Without Intravenous Contrast CLINICAL HISTORY: 52 years old, male; Injury or trauma; Fall; Initial encounter; Concussion /head injury; Additional info: S/P fall, intox TECHNIQUE: Axial computed tomography images of the cervical spine without intravenous contrast. All CT scans at this facility use one or more dose reduction techniques, viz.: automated exposure control; ma/kV adjustment per patient size (including targeted exams where dose is matched to indication; i.e. head); or iterative reconstruction technique. Coronal and sagittal reformatted images were created and reviewed. COMPARISON: No relevant prior studies available. FINDINGS: Vertebrae: No acute fracture. Degenerative retrolithesis of lower cervical spine. Mild facet osteoarthrosis. Discs/spinal canal/neural foramina: Moderate degenerative disc disease within upper cervical spine. Early degenerative disc disease within mid cervical spine. Moderate degenerative disc disease within lower cervical spine. Mild indentation thecal sac/cord upper cervical spine. Moderate indentation thecal sac/cord lower cervical spine. Neuroforaminal narrowing with upper and and lower cervical spine. Other bones/joints: Postsurgical changes of mandible. Soft tissues: Unremarkable. Vasculature: Minimal to mild atherosclerotic disease of carotid arteries. Sinuses: Focal mucosal thickening +/- fluid of visualized LEFT maxillary sinus. Lung apices: Unremarkable as visualized. IMPRESSION: 1. No fracture. 2. Incidental/non-acute findings are described above.
[2017-06-16 06:28] VITALS: BP 127/78; RESP 14; TEMP 98.3
--- NOTE | 2017-06-16 09:16 | RAD ---
PROCEDURE: Left Hip X-ray Radiographs. HISTORY: s/p fall COMPARISON: Left hip radiographs dated 05/30/2017. FINDINGS: There has been prior open reduction internal fixation of the right femur with hardware seen intact. Heterotopic ossification is seen superficial to the right greater trochanter. Severe left hip osteoarthritic change is redemonstrated. No acute fracture is evident. The sacroiliac joints are intact. Evaluation the sacrum is limited by overlying bowel gas and stool. The ilioischial and iliopectineal lines are smooth. The symphysis pubis is normal. IMPRESSION: No acute fracture. Severe left hip osteoarthritic change.
--- NOTE | 2017-06-16 09:18 | RAD ---
PROCEDURE: Left Knee Radiographs. HISTORY: Pain. COMPARISON: None. FINDINGS: BONES: Partially imaged tibial orthopedic hardware. No acute fracture. Heterotopic calcification anterior to the tibial plateau. JOINTS: Unchanged. JOINT EFFUSION: None. OTHER FINDINGS: None. IMPRESSION: No acute fracture. No significant interval change.
== END 2017-06-16 06:29 | disposition home or self-care (01) ==
LOC: H.ER 21:16
DX: F10.129 Alcohol abuse with intoxication, unspecified (principal); S09.90XA Unspecified injury of head, initial encounter; T07.XXXA Unspecified multiple injuries, initial encounter; W19.XXXA Unspecified fall, initial encounter; Y92.89 Other specified places as the place of occurrence of the external cause; E11.9 Type 2 diabetes mellitus without complications; I10 Essential (primary) hypertension; M16.12 Unilateral primary osteoarthritis, left hip

== ENCOUNTER 2017-06-24 14:15 | Emergency (ER) | payer MEDICAID ==
[2017-06-24 14:15] VITALS: BMI 22.9
[2017-06-24 14:19] VITALS: RESP 18; TEMP 97
--- NOTE | 2017-06-24 15:35 | ED PDOC ---
HPI: Trauma/Fall - HPI Time Seen by Provider: 06/24/17 15:24 Chief Complaint (Nursing): Weakness/Neurological Deficit Chief Complaint (Provider): fall,headache History Per: Patient History/Exam Limitations: no limitations Onset/Duration Of Symptoms: Hrs (5) Pain Scale Rating Of: 5 Additional Complaint(s): 52 yo ,m, afroamerican, PMhx/o DM,HTN,Asthma, depression, sizures, gastritis, ETOH abuser presents to ED brought by BLS with c/o generalized weakness.Patient reports he fell down today in the morning about 10:30 [address] in [place], not witnessed and hit his head on the back and left knee. He denies prior dizziness, syncope, chest pain,palpitation. Denies subsequent confusion, paresis, slurred speech, difficulty walking. Reports occipital headache 5/10. During evaluation patient constantly asking for food and report he has not eating nothing during the last 3 days. There is not signs of trauma over head or left knee. Patient was evaluated 8 days ago in ED for similar symptoms. Patient reports he is not a homeless. Patient reports he drank a lot yesterday, but not today Past Medical History Reviewed: Historical Data, Nursing Documentation, Vital Signs Vital Signs: Last Vital Signs Temp 97 F L 06/24/17 14:17 Pulse 89 06/24/17 16:10 Resp 18 06/24/17 14:17 BP 130/78 06/24/17 19:16 Pulse Ox 99 06/24/17 19:29 - Medical History PMH: Asthma, Depression, Diabetes, Gastritis, Gastrointestinal Ulcer, HTN, Pneumonia, Seizures - Surgical History Surgical History: Endoscopy - Family History Family History: States: Unknown Family Hx - Immunization History Hx Tetanus Toxoid Vaccination: No Hx Influenza Vaccination: Yes Hx Pneumococcal Vaccination: No - Home Medications Home Medications: Ambulatory Orders Medication Instructions Recorded cloNIDine [Catapres] 0.2 mg PO DAILY 01/05/16 Folic Acid 1 mg PO DAILY tab 11/24/16 Thiamine [Vitamin B1 Tab] 100 mg PO DAILY tab 11/24/16 - Allergies Allergies/Adverse Reactions: Allergies Allergy/AdvReac Type Severity Reaction Status Date / Time No Known Allergies Allergy Verified 06/24/17 14:17 Review of Systems ROS Statement: Except As Marked, All Systems Reviewed And Found Negative Musculoskeletal: Positive for: Other (left knee pain ) Neurological: Positive for: Headache Physical Exam - Physical Exam Appears: Positive for: Well, No Acute Distress Head Exam: Positive for: ATRAUMATIC, NORMOCEPHALIC Skin: Positive for: Normal Color Neck: Positive for: Normal, Supple Cardiovascular/Chest: Positive for: Regular Rate, Rhythm, Tachycardia. Negative for: Murmur Respiratory: Positive for: Normal Breath Sounds. Negative for: Crackles, Rales , Rhonchi, Wheezing Gastrointestinal/Abdominal: Positive for: Soft. Negative for: Tenderness, Distended, Guarding, Rebound Back: Positive for: Normal Inspection Extremity: Negative for: Tenderness, Pedal Edema, Calf Tenderness Neurologic/Psych: Positive for: Alert, Oriented - Laboratory Results Result Diagrams: 06/24/17 15:56 06/24/17 15:56 - ECG O2 Sat by Pulse Oximetry: 99 Medical Decision Making Medical Decision Makin:25 Impression Fall with secondary head trauma ETOH Abuse Differential Subdural hematoma Cranial Fracture Malingering Plan CBC, CMP, Phosp,MG, Troponin, Accucheck, Serum Alcohol Urine tox, EKG, troponin CT head w/o contrast Accucheck 60 mg/dl Patient asymptomatic. Given snack 19:[address] Head, ETOH levels high, IV fluids given, Hypoglycemia corrected.Last Accucheck 187 mg/dl Case discussed with Dr Hackett taking care of patient at this moment for Dr Mosley Disposition - Clinical Impression Clinical Impression: Episode of generalized weakness, Alcohol intoxication - Disposition Disposition Time: 19:30 Condition: STABLE Instructions: Weakness (ED) Forms: [employer] (Portuguese)
[2017-06-24 15:59] LABS: BASO # 0.1 K/uL (0.0-0.2); BASO % 1.9 % (0.0-2.0); EOS % 0.5 % (0.0-4.0); HEMOGLOBIN 13.2 g/dL (12.0-18.0); LYMPH # 1.2 K/uL (1.0-4.3); LYMPH % 30.1 % (20.0-40.0); MEAN CELL VOLUME 98.6 fl (80.0-94.0); MEAN CORPUSCULAR HEMOGLOBIN 34.5 pg (27.0-31.0); MEAN PLATELET VOLUME 6.6 fl (7.2-11.7); MONO # 0.2 K/uL (0.0-0.8); MONO % 5.5 % (0.0-10.0); NEUT # 2.4 K/uL (1.8-7.0); NRBC % 0.2 % (0.0-0.0); RBC 3.84 Mil/uL (4.40-5.90); RED CELL DISTRIBUTION WIDTH 16.5 % (11.5-14.5); WHITE BLOOD COUNT 3.9 K/uL (4.8-10.8)
[2017-06-24 16:27] LABS: ALB/GLOB RATIO 1.2 (1.0-2.1); ALBUMIN 4.3 g/dL (3.5-5.0); ALT/SGPT 58 U/L (21-72); AST/SGOT 111 U/L (17-59); BLOOD UREA NITROGEN 5 mg/dl (9-20); CALCIUM 8.8 mg/dL (8.4-10.2); GFR AFRICAN-AMERICAN > 60; GFR NON-AFRICAN AMERICAN > 60
[2017-06-24 17:38] LABS: BARBITURATES, UR NEGATIVE (NEGATIVE); BENZODIAZEPINES, UR NEGATIVE (NEGATIVE); OPIATES, UR NEGATIVE (NEGATIVE); PHENCYCLIDINE, UR NEGATIVE (NEGATIVE)
[2017-06-24] MEDS ORDERED: Sodium Chloride 0.9% 500 ML IV ONE (17:50)
--- NOTE | 2017-06-24 19:36 | ED PDOC ---
- Laboratory Results Result Diagrams: 06/24/17 15:56 06/24/17 15:56 - ECG O2 Sat by Pulse Oximetry: 99 Pulse Ox Interpretation: Normal Disposition - Clinical Impression Clinical Impression: Episode of generalized weakness, Alcohol intoxication - POA Present On Arrival: None - Disposition Disposition: Transfer of Care Disposition Time: 20:00 Condition: STABLE Instructions: Weakness (ED) Forms: [employer] (French) Patient Signed Over To: Denise Mak Y Addendum Addendum: 06/24/17 17:00 Pt signed out by Dr. Chicas pending labs and imaging. 06/24/17 19:59 Patient signed out to Dr. Mak pending CT head and labs.
--- NOTE | 2017-06-24 20:06 | ED PDOC ---
- Laboratory Results Result Diagrams: 06/24/17 15:56 06/24/17 15:56 - ECG O2 Sat by Pulse Oximetry: 99 Medical Decision Making Medical Decision Making: Time: 1956 Patient signed out to me by Dr. Hackett pending ER workup and reassessment. Patient's labs are positive for cocaine and alcohol use. He is comfortable and stable for discharge. pt stable for dc, steady gait Scribe Attestation: Documented by Mariza Thorpe acting as a scribe for Denise Mak MD Provider Scribe Attestation: All medical record entries made by the Scribe were at my direction and personally dictated by me. I have reviewed the chart and agree that the record accurately reflects my personal performance of the history, physical exam, medical decision making, and the department course for this patient. I have also personally directed, reviewed, and agree with the discharge instructions and disposition. Disposition Counseled Patient/Family Regarding: Studies Performed, Diagnosis, Need For Followup - Clinical Impression Clinical Impression: Episode of generalized weakness, Alcohol intoxication - POA Present On Arrival: None - Disposition Referrals: [facility] [Outside] [facility] [Outside] Disposition: Routine/Home Disposition Time: 00:25 Condition: IMPROVED Additional Instructions: follow up with your primary doctor in 1-2 days return to the ED with any worsening or concerning symptoms Instructions: Polysubstance Abuse, Weakness (ED) Forms: [employer] (Puerto Rican)
--- NOTE | 2017-06-24 21:53 | CT ---
EXAM: CT Head Without Intravenous Contrast EXAM DATE/TIME: 06/24/2017 3:30 PM CLINICAL HISTORY: 52 years old, male; Injury or trauma; Fall; Initial encounter; Concussion / head injury; Additional info: Fall. Head trauma(occipital) TECHNIQUE: Axial computed tomography images of the head/brain without intravenous contrast. All CT scans at this facility use one or more dose reduction techniques, viz.: automated exposure control; ma/kV adjustment per patient size (including targeted exams where dose is matched to indication; i.e. head); or iterative reconstruction technique. Coronal and sagittal reformatted images were created and reviewed. COMPARISON: CT - HEAD W/O CONTRAST 2017-06-15 23:47 FINDINGS: Brain: There is mild prominence of sulci, gyri and ventricles. There is no midline shift. There are no intra-axial or extra-axial mass lesions or areas of hemorrhage. There are no abnormal fluid collections. -white differentiation is maintained. Ventricles: See above. Bones: Cranial vault is intact. Soft tissues: There is a right occipital scalp hematoma. There is left parietal scalp hematoma. There is bilateral frontal scalp swelling. Sinuses: There is left maxillary sinusitis Ears and mastoids: Middle ears and mastoids are unremarkable Orbits: There are no acute orbital abnormalities. There is an old right lamina papyracea fracture. IMPRESSION: No acute intracranial abnormality Additional nonemergent findings as described above.
[2017-06-25 01:19] VITALS: BP 132/72; PULSE 98
[2017-06-25 05:45] VITALS: O2SAT 99
--- NOTE | 2017-06-25 07:39 | CARD ---
APPROVED REPORT EKG Measurement Heart [id number] <Conclusion> Sinus tachycardia Otherwise normal ECG
== END 2017-06-25 01:20 | disposition home or self-care (01) ==
LOC: H.ER 14:15
DX: F10.129 Alcohol abuse with intoxication, unspecified (principal); R53.1 Weakness; E11.9 Type 2 diabetes mellitus without complications; Z86.59 Personal history of other mental and behavioral disorders; J45.909 Unspecified asthma, uncomplicated; S09.90XA Unspecified injury of head, initial encounter; I10 Essential (primary) hypertension; W18.30XA Fall on same level, unspecified, initial encounter; Y93.01 Activity, walking, marching and hiking; Y92.480 Sidewalk as the place of occurrence of the external cause
CPT/HCPCS: 70450; 80053; 80320; 80324; 80345; 80346; 80349; 80353; 80358; 80361; 82948; 83735; 83992; 84100; 84484; 85025; 93005; 99285; J7040

== ENCOUNTER 2017-07-08 01:33 | Emergency (ER) | payer MEDICAID ==
[2017-07-08 01:34] VITALS: BMI 22.9
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
[2017-07-08 04:58] VITALS: BP 137/77; PULSE 79; RESP 16; TEMP 97.9; O2SAT 96
--- NOTE | 2017-07-08 09:17 | RAD ---
PROCEDURE: HISTORY: fall, pain x 2 wks COMPARISON: Left knee x-ray 06/15/2017 TECHNIQUE: Three views FINDINGS: No acute fracture dislocation. Partially visualized tibial intramedullary wilder with proximal screw noted. Grossly unremarkable Central tibial prominent subchondral sclerotic appearance attributed to large and multiple well corticated ossifications along the anterior tibial tuberosity with calcification likely within the anterior soft tissues as well Lateral proximal femoral shaft smooth periosteal reaction/cortical hypertrophy -chronic appearing Left hip joint arthrosis with subchondral cystic changes. Left femoral head partially uncovered right acetabulum, regional ossific debris here also inferred. IMPRESSION: Advanced left hip cystic arthrosis. Left hip concomitant adult type dysplasia also suspect. Additional findings as above Partially visualize left tibial intramedullary orthopedic hardware contiguous well corticated ossifications compatible with old remote trauma
--- NOTE | 2017-07-08 09:21 | RAD ---
PROCEDURE: HISTORY: fall, pain x 2 wks COMPARISON: 06/15/2017 TECHNIQUE: Three views FINDINGS: Sacroiliac and pubic symphyseal joints normal Right intramedullary femoral wilder and intertrochanteric transfixing screw. Well corticated ossification - superior orthopedic hardware border compatible with large heterotopic ossification here and/or old remote osseous avulsion and heterotopic ossification. Intrinsic right superolateral hip joint space narrowing/osteoarthrosis. Greater left hip cystic arthrosis with femoral head covering-hip dysplasia inferred. Lateral proximal left femoral shaft smooth periosteal reaction and cortical thickening and chronic appearing No interval acute fracture or interval right hardware failure apparent IMPRESSION: Stable right hip postop changes Bilateral hip arthrosis much more severe on the left. Concomitant left hip dysplasia suggested. Other findings as above
== END 2017-07-08 05:00 | disposition home or self-care (01) ==
LOC: H.ER 01:33
DX: M25.552 Pain in left hip (principal)

== ENCOUNTER 2017-07-09 00:25 | Emergency (ER) | payer MEDICAID ==
[2017-07-09 00:25] VITALS: BMI 22.9
--- NOTE | 2017-07-09 00:35 | ED PDOC ---
Arrival/HPI - General Chief Complaint: Hip Pain Past Medical History - Infectious Disease Hx of Infectious Diseases: None - Tetanus Immunization Tetanus Immunization: Unknown - Past Medical History Past Medical History: No Previous - Cardiac Hx Hypertension: Yes - Pulmonary Hx Asthma: Yes Hx Pneumonia: Yes - Neurological Hx Seizures: Yes - HEENT Hx HEENT Disorder: No - Endocrine/Metabolic Hx Endocrine Disorders: No - Hematological/Oncological Hx Blood Disorders: No - Integumentary Hx Dermatological Disorder: No - Musculoskeletal/Rheumatological Hx Falls: No - Gastrointestinal Hx Gastritis: Yes Hx Gastrointestinal Ulcer: Yes - Genitourinary/Gynecological Hx Genitourinary Disorders: No - Psychiatric Hx Depression: Yes Hx Substance Use: No (denies) - Past Surgical History Past Surgical History: Unable to Obtain - Surgical History Other/Comment: Rods in his legs - Anesthesia Hx Anesthesia: Yes Hx Anesthesia Reactions: No Hx Malignant Hyperthermia: No - Suicidal Assessment Feels Threatened In Home Enviroment: No Family/Social History Smoking Status: Smoker Currrent Status Unknown Hx Alcohol Use: Yes Hx Substance Use: No (denies) Substance used: Cocaine Hx Substance Use Treatment: (unk) Allergies/Home Meds Allergies/Adverse Reactions: Allergies No Known Allergies Allergy (Verified 07/09/17 00:30) VERIFIED 05/01/2014 Home Medications: Home Meds Medication Instructions Recorded Confirmed cloNIDine [Catapres] 0.2 mg PO DAILY 01/05/16 11/21/16 Disposition/Present on Arrival - Present on Arrival History of DVT/PE: No History of Uncontrolled Diabetes: No Urinary Catheter: No History Surgical Site Infection Following: None - Disposition
[2017-07-09 00:45] VITALS: BP 138/108; PULSE 103; TEMP 98.1; O2SAT 100
--- NOTE | 2017-07-09 00:57 | ED PDOC ---
Lower Extremity Pain/Injury Time Seen by Provider: 07/09/17 00:36 Chief Complaint (Nursing): Hip Pain Chief Complaint (Provider): Hip Pain History Per: Patient History/Exam Limitations: no limitations Onset/Duration Of Symptoms: Persistent Current Symptoms Are (Timing): Constant Additional Complaint(s): 52 year old male presents to ED with complaints of left hip pain and has a past medical history of HTN and chronic left hip pain. Patient notes that he is awaiting a left hip replacement and was seen in the ED yesterday for the same complaint. Denies new injury. Patient requests more pain medication and admits to not filling the prescriptions provided yesterday. Patient is well known to ED for homelessness and bed seeking behavior. PCP: None Past Medical History Reviewed: Historical Data, Nursing Documentation, Vital Signs Vital Signs: Last Vital Signs Temp 98.1 F 07/09/17 00:42 Pulse 103 H 07/09/17 00:42 Resp BP 138/108 H 07/09/17 00:42 Pulse Ox 100 07/09/17 00:42 - Medical History PMH: Asthma, Depression, Diabetes, Gastritis, Gastrointestinal Ulcer, HTN, Pneumonia, Seizures - Surgical History Surgical History: Endoscopy Denies: No Surg Hx, Appendectomy Other surgeries: right hip replacement, unspecified cranial surgery - Family History Family History: States: Unknown Family Hx - Living Arrangements Living Arrangements: Other (Undomiciled) - Social History Current smoker - smoking cessation education provided: No Ex-Smoker (has not smoked in the last 12 months): No Alcohol: None Drugs: Denies - Immunization History Hx Tetanus Toxoid Vaccination: No Hx Influenza Vaccination: Yes Hx Pneumococcal Vaccination: No - Home Medications Home Medications: Ambulatory Orders Medication Instructions Recorded cloNIDine [Catapres] 0.2 mg PO DAILY 01/05/16 Folic Acid 1 mg PO DAILY tab 11/24/16 Thiamine [Vitamin B1 Tab] 100 mg PO DAILY tab 11/24/16 Naproxen [Naprosyn] 500 mg PO Q12 PRN #20 tablet 07/08/17 - Allergies Allergies/Adverse Reactions: Allergies Allergy/AdvReac Type Severity Reaction Status Date / Time No Known Allergies Allergy Verified 07/09/17 00:30 Review of Systems ROS Statement: Except As Marked, All Systems Reviewed And Found Negative Musculoskeletal: Positive for: Other (left hip pain) Physical Exam - Reviewed Nursing Documentation Reviewed: Yes Vital Signs Reviewed: Yes - Physical Exam Appears: Positive for: Non-toxic, No Acute Distress Skin: Positive for: Normal Color, Warm, Dry Cardiovascular/Chest: Positive for: Regular Rate, Rhythm. Negative for: Murmur Respiratory: Positive for: Normal Breath Sounds. Negative for: Respiratory Distress Gastrointestinal/Abdominal: Positive for: Soft. Negative for: Tenderness Extremity: Positive for: Normal ROM, Capillary Refill (<2 seconds). Negative for: Deformity Neurologic/Psych: Positive for: Alert, Oriented. Negative for: Motor/Sensory Deficits - ECG O2 Sat by Pulse Oximetry: 100 (RA) Pulse Ox Interpretation: Normal Medical Decision Making Medical Decision Makin Initial impression: chronic left hip pain secondary to known hip replacement Initial plan: * Tramadol 50mg PO 0050 Patient was advised to follow up with outpatient, as he was referred to an orthopedist/rehabilitation center by [facility]. Patient was also given referral to [facility] service to further assist him with outpatient appointments. Patient is stable for discharge. Scribe Attestation: Documented by Judy Lraa acting as a scribe for Brant Crystal MD. DO Scribe Attestation: All medical record entries made by the Scribe were at my direction and personally dictated by me. I have reviewed the chart and agree that the record accurately reflects my personal performance of the history, physical exam, medical decision making, and the department course for this patient. I have also personally directed, reviewed, and agree with the discharge instructions and disposition. Disposition - Clinical Impression Clinical Impression: Hip pain, left - Disposition Disposition: Routine/Home Disposition Time: 00:50 Condition: STABLE Instructions: Hip Pain in Older People, Hip Pain Forms: [employer] (Portuguese)
== END 2017-07-09 01:29 | disposition home or self-care (01) ==
LOC: H.ER 00:25
DX: M25.552 Pain in left hip (principal); E11.9 Type 2 diabetes mellitus without complications; G89.29 Other chronic pain; Z96.641 Presence of right artificial hip joint

== ENCOUNTER 2017-07-21 08:49 | Emergency (ER) | payer MEDICAID ==
[2017-07-21 08:49] VITALS: BMI 22.9
[2017-07-21 08:59] VITALS: TEMP 97
--- NOTE | 2017-07-21 09:58 | ED PDOC ---
HPI: Psych/Substance Abuse Time Seen by Provider: 07/21/17 09:27 Chief Complaint (Nursing): Weakness/Neurological Deficit ED Caveat: Intoxicated History Per: Patient History/Exam Limitations: no limitations Current Symptoms Are (Timing): Still Present Modifying Factor(s): Alcohol Associated Symptoms: denies: Anxiety, Agitation, Depression, Paranoia, Suicidal Thoughts, Suicidal Plan Involuntary Hold By: None Additional History Per: EMS Additional Complaint(s): pt undomiciled well know to this ed. admits to drinking etoh. pt. into ER via EMS for evaluation of generalized weakness and "feeling cold". as per EMS pt. was found laying outside. Past Medical History Reviewed: Historical Data, Nursing Documentation, Vital Signs Vital Signs: Last Vital Signs Temp 97.0 F L 07/21/17 08:56 Pulse 72 07/21/17 08:56 Resp 17 07/21/17 08:56 BP 130/104 H 07/21/17 08:56 Pulse Ox 99 07/21/17 08:56 - Medical History PMH: Asthma, Depression, Diabetes, Gastritis, Gastrointestinal Ulcer, HTN, Pneumonia, Seizures Denies: Chronic Kidney Disease - Surgical History Surgical History: Endoscopy Denies: Appendectomy - Family History Family History: States: Unknown Family Hx - Living Arrangements Living Arrangements: With Family - Social History Current smoker - smoking cessation education provided: No - Immunization History Hx Tetanus Toxoid Vaccination: No Hx Influenza Vaccination: Yes Hx Pneumococcal Vaccination: No - Home Medications Home Medications: Ambulatory Orders Medication Instructions Recorded cloNIDine [Catapres] 0.2 mg PO BID 01/05/16 Alendronate Sodium [Binosto] 1 tab PO QWK 07/16/17 Bisoprolol/HCTZ [Ziac 5-6.25 mg] 1 tab PO DAILY 07/16/17 Cyclobenzaprine HCl 1 tab PO HS 07/16/17 Docusate Sodium 1 cap PO BID PRN 07/16/17 Montelukast Sodium [Singulair] 1 tab PO DAILY 07/16/17 amLODIPine [Norvasc] 1 tab PO DAILY 07/16/17 Acetaminophen [Tylenol 325mg tab] 650 mg PO Q6 PRN #0 tab 07/17/17 Azithromycin [Zithromax] 500 mg PO DAILY #5 tablet 07/17/17 Pantoprazole [Protonix EC Tab] 40 mg PO BID #60 ect 07/17/17 - Allergies Allergies/Adverse Reactions: Allergies Allergy/AdvReac Type Severity Reaction Status Date / Time No Known Allergies Allergy Verified 07/21/17 08:56 Review of Systems ROS Statement: Except As Marked, All Systems Reviewed And Found Negative Constitutional: Negative for: Fever, Chills Cardiovascular: Negative for: Chest Pain, Palpitations Respiratory: Negative for: Cough, Shortness of Breath Gastrointestinal: Negative for: Nausea, Vomiting, Abdominal Pain Neurological: Negative for: Weakness, Numbness Psych: Negative for: Anxiety, Depression, Psychosis, Suicidal ideation, Withdrawal Physical Exam - Reviewed Nursing Documentation Reviewed: Yes Vital Signs Reviewed: Yes - Physical Exam Appears: Positive for: Uncomfortable (+ etoh on breath) Head Exam: Positive for: ATRAUMATIC, NORMAL INSPECTION, NORMOCEPHALIC Eye Exam: Positive for: Normal appearance Neck: Positive for: Normal, Painless ROM, Supple Cardiovascular/Chest: Positive for: Regular Rate, Rhythm Respiratory: Positive for: Normal Breath Sounds Pulses-Radial (L): 2+ Pulses-Radial (R): 2+ Gastrointestinal/Abdominal: Positive for: Normal Exam, Bowel Sounds, Soft. Negative for: Tenderness Back: Positive for: Normal Inspection. Negative for: L CVA Tenderness, R CVA Tenderness Extremity: Positive for: Normal ROM. Negative for: Tenderness, Pedal Edema Neurologic/Psych: Positive for: Alert, cooker loader II-XII, Oriented, Mood/Affect (calm) . Negative for: Motor/Sensory Deficits - ECG O2 Sat by Pulse Oximetry: 99 Pulse Ox Interpretation: Normal - Progress ED Course And Treament: pt hs no signs of clinical intoxication. ambulating with steady gait, per pt he drinks daily. all of pt's questions were answered and pt agree's with plan, pt denies any complaints at this time Re-evaluation Time: 12:26 Condition: Improved Disposition - Clinical Impression Clinical Impression: Alcohol abuse with uncomplicated intoxication - Patient ED Disposition Is Patient to be Admitted: No Counseled Patient/Family Regarding: Studies Performed, Diagnosis, Need For Followup, Rx Given - Disposition Referrals: [facility] [Outside] (2 to 3 days) Disposition: Routine/Home Disposition Time: 12:27 Condition: GOOD Instructions: Alcohol Abuse and Alcoholism (DC) Forms: [employer] (Kazakh)
[2017-07-21 13:39] VITALS: BP 134/78; PULSE 75; RESP 15; O2SAT 97
== END 2017-07-21 13:50 | disposition home or self-care (01) ==
LOC: H.ER 08:49
DX: F10.120 Alcohol abuse with intoxication, uncomplicated (principal); E11.9 Type 2 diabetes mellitus without complications; F32.9 Major depressive disorder, single episode, unspecified; I10 Essential (primary) hypertension; J45.909 Unspecified asthma, uncomplicated

== ENCOUNTER 2017-07-22 01:11 | Emergency (ER) | payer MEDICAID ==
[2017-07-22 01:11] VITALS: BMI 22.9
[2017-07-22 01:22] VITALS: RESP 18; TEMP 97.6; O2SAT 100
--- NOTE | 2017-07-22 02:44 | ED PDOC ---
HPI: General Adult Time Seen by Provider: 07/22/17 01:52 Chief Complaint (Nursing): GI Problem Chief Complaint (Provider): GI Problem History Per: Patient History/Exam Limitations: no limitations Onset/Duration Of Symptoms: Days Current Symptoms Are (Timing): Still Present Additional Complaint(s): 52 year old male with a history of chronic hip pain, drug dependency, etoh gastritis, poly substance abuse, homelessness, pancreatitis, malingering presents to the ED for evaluation. Patient was seen last week at [facility] , had imaging of his hip done and had outpatient follow up arranged which he never followed up with. He was seen yesterday in the [facility] [place] ED for alcohol abuse and also seen today there for "feeling funny". Patient was discharged from [facility] [place] at 00:35 today. He appears to be bed seeking and has no other complaints. PMD: Dr. Rahman Past Medical History Reviewed: Historical Data, Nursing Documentation, Vital Signs Vital Signs: Last Vital Signs Temp 97.6 F 07/22/17 01:18 Pulse 78 07/22/17 03:37 Resp 18 07/22/17 01:18 BP 106/65 07/22/17 03:37 Pulse Ox 100 07/22/17 02:48 - Medical History PMH: Asthma, Depression, Diabetes, Gastritis, Gastrointestinal Ulcer, HTN, Pneumonia, Seizures Denies: Chronic Kidney Disease - Surgical History Surgical History: Endoscopy Denies: Appendectomy - Family History Family History: States: Unknown Family Hx - Social History Current smoker - smoking cessation education provided: No Ex-Smoker (has not smoked in the last 12 months): No Alcohol: > 2 Drinks/Day - Immunization History Hx Tetanus Toxoid Vaccination: No Hx Influenza Vaccination: Yes Hx Pneumococcal Vaccination: No - Home Medications Home Medications: Ambulatory Orders Medication Instructions Recorded cloNIDine [Catapres] 0.2 mg PO BID 01/05/16 Alendronate Sodium [Binosto] 1 tab PO QWK 07/16/17 Bisoprolol/HCTZ [Ziac 5-6.25 mg] 1 tab PO DAILY 07/16/17 Cyclobenzaprine HCl 1 tab PO HS 07/16/17 Docusate Sodium 1 cap PO BID PRN 07/16/17 Montelukast Sodium [Singulair] 1 tab PO DAILY 07/16/17 amLODIPine [Norvasc] 1 tab PO DAILY 07/16/17 Acetaminophen [Tylenol 325mg tab] 650 mg PO Q6 PRN #0 tab 07/17/17 Azithromycin [Zithromax] 500 mg PO DAILY #5 tablet 07/17/17 Pantoprazole [Protonix EC Tab] 40 mg PO BID #60 ect 07/17/17 - Allergies Allergies/Adverse Reactions: Allergies Allergy/AdvReac Type Severity Reaction Status Date / Time No Known Allergies Allergy Verified 07/22/17 01:17 Physical Exam - Reviewed Nursing Documentation Reviewed: Yes - Physical Exam Appears: Positive for: Well, Non-toxic Head Exam: Positive for: ATRAUMATIC, NORMAL INSPECTION, NORMOCEPHALIC Skin: Positive for: Normal Color, Warm, Dry ENT: Positive for: Normal ENT Inspection Neck: Positive for: Painless ROM Respiratory: Positive for: Normal Breath Sounds Gastrointestinal/Abdominal: Positive for: Normal Exam Extremity: Positive for: Tenderness Neurologic/Psych: Positive for: Alert - ECG O2 Sat by Pulse Oximetry: 100 Medical Decision Making Medical Decision Making: Time: 02:40 Patient appears to be bed seeking. It is warm enough for a safe discharge. Scribe Attestation: Documented by Sana wAan, acting as a scribe for Denise Mak MD Provider Scribe Attestation: All medical record entries made by the Scribe were at my direction and personally dictated by me. I have reviewed the chart and agree that the record accurately reflects my personal performance of the history, physical exam, medical decision making, and the department course for this patient. I have also personally directed, reviewed, and agree with the discharge instructions and disposition. Disposition - Clinical Impression Clinical Impression: Chronic hip pain - Patient ED Disposition Is Patient to be Admitted: No Counseled Patient/Family Regarding: Diagnosis, Need For Followup - Disposition Referrals: [facility] [Outside] [facility] [Outside] Disposition: Routine/Home Disposition Time: 02:40 Condition: IMPROVED Additional Instructions: follow up with your primary doctor/outpatient orthopedist information that was previously given to you return to the ED with any worsening or concerning symptoms Instructions: Chronic Pain (DC) Forms: [employer] (South African) - POA Present On Arrival: None
[2017-07-22 02:47] VITALS: BP 106/65
[2017-07-22 03:40] VITALS: PULSE 78
== END 2017-07-22 03:39 | disposition home or self-care (01) ==
LOC: H.ER 01:11
DX: M25.559 Pain in unspecified hip (principal); G89.29 Other chronic pain; Z86.59 Personal history of other mental and behavioral disorders; Z59.0 Homelessness; E11.9 Type 2 diabetes mellitus without complications; I10 Essential (primary) hypertension; J45.909 Unspecified asthma, uncomplicated; Z87.891 Personal history of nicotine dependence

== ENCOUNTER 2017-07-30 23:52 | Emergency (ER) | payer MEDICAID ==
[2017-07-30 23:57] VITALS: BMI 24.7
--- NOTE | 2017-07-31 00:56 | ED PDOC ---
HPI: Psych/Substance Abuse Time Seen by Provider: 07/31/17 00:11 Chief Complaint (Nursing): Trauma Chief Complaint (Provider): Trauma ED Caveat: Intoxicated History Per: Patient History/Exam Limitations: intoxication Onset/Duration Of Symptoms: Days (07/31/17) Modifying Factor(s): Alcohol Additional History Per: EMS Additional Complaint(s): 52 year old males was bought into the ED by EMS. Patient has a history of alcohol abuse. Reports he was walking down the street and he fell. He hit his head, left shoulder, and left knee. Of note: history is limited due to intoxication. PMD: Provider TBD Past Medical History Reviewed: Historical Data, Nursing Documentation, Vital Signs Vital Signs: Last Vital Signs Temp 98.7 F 07/30/17 23:56 Pulse 115 H 07/30/17 23:56 Resp 18 07/30/17 23:56 BP 143/90 07/30/17 23:56 Pulse Ox 97 07/30/17 23:56 - Medical History PMH: Asthma, Depression, Diabetes, Gastritis, Gastrointestinal Ulcer, HTN, Pneumonia, Seizures Denies: Chronic Kidney Disease - Surgical History Surgical History: Endoscopy Denies: Appendectomy - Family History Family History: States: Unknown Family Hx - Immunization History Hx Tetanus Toxoid Vaccination: No Hx Influenza Vaccination: Yes Hx Pneumococcal Vaccination: No - Home Medications Home Medications: Ambulatory Orders Medication Instructions Recorded cloNIDine [Catapres] 0.2 mg PO BID 01/05/16 Alendronate Sodium [Binosto] 1 tab PO QWK 07/16/17 Bisoprolol/HCTZ [Ziac 5-6.25 mg] 1 tab PO DAILY 07/16/17 Cyclobenzaprine HCl 1 tab PO HS 07/16/17 Docusate Sodium 1 cap PO BID PRN 07/16/17 Montelukast Sodium [Singulair] 1 tab PO DAILY 07/16/17 amLODIPine [Norvasc] 1 tab PO DAILY 07/16/17 Acetaminophen [Tylenol 325mg tab] 650 mg PO Q6 PRN #0 tab 07/17/17 Azithromycin [Zithromax] 500 mg PO DAILY #5 tablet 07/17/17 Pantoprazole [Protonix EC Tab] 40 mg PO BID #60 ect 07/17/17 - Allergies Allergies/Adverse Reactions: Allergies Allergy/AdvReac Type Severity Reaction Status Date / Time No Known Allergies Allergy Verified 07/30/17 23:55 Review of Systems Review Of Systems: ROS cannot be obtained secondary to pt's inabilty to answer questions. Physical Exam - Reviewed Nursing Documentation Reviewed: Yes Vital Signs Reviewed: Yes - Physical Exam Appears: Positive for: Non-toxic, No Acute Distress. Negative for: Well ( intoxicated appearing ) Head Exam: Positive for: ATRAUMATIC, NORMAL INSPECTION, NORMOCEPHALIC Skin: Positive for: Normal Color, Warm, Dry Neck: Negative for: Normal (no c-spine tenderness; c-spine in collar) Extremity: Positive for: Normal ROM, Other (left shoulder trauma; contusion to the knee) Neurologic/Psych: Positive for: Alert - ECG O2 Sat by Pulse Oximetry: 97 (RA) Pulse Ox Interpretation: Normal Medical Decision Making Medical Decision Making: Time: 002 A/P: Patient with known history of alcohol abuse presents to the ED pale appearing and pending reevaluation. Initial Plan: --Cervical spine w/o contrast [CT] --Head w/o contrast [CT] --Maxillofacial w/o contrast [CT] --Alcohol serum --Knee 3 Views LT [RAD] --Glucose, Blood, POC --Shoulder Left [RAD] --Reevaluation Time: 0145 EXAM:CT Head Without Intravenous Contrast FINDINGS: Brain: There is mild diffuse cerebral atrophy present, consistent with this patient's age. No hemorrhage. No significant white matter disease. Ventricles: The ventricular system demonstrates mild diffuse compensatory enlargement. Bones/joints: Chronic nasal bone fracture. Soft tissues: Unremarkable. Sinuses: There is diffuse mucoperiosteal thickening in the left maxillary sinus , consistent with chronic sinusitis. Mastoid air cells: Unremarkable as visualized. No mastoid effusion. IMPRESSION: No acute intracranial findings. Chronic nasal bone fracture. Time: 0207 EXAM:CT Cervical Spine Without Intravenous Contrast FINDINGS: There is no evidence of acute fracture. There is no evidence of malalignment or dislocation. There are degenerative changes at multiple levels most severe at C2-3, C5-6 and C6-7. C2-3: Disc space narrowing, endplate spurs, uncovertebral hypertrophy and facet arthropathy result in moderate spinal canal and neuroforaminal stenosis bilaterally. C3-4: Mild central disc bulge. Bilateral facet arthropathy. This results in mild spinal canal and neuroforaminal stenosis. C4-5: Mild central disc bulge. Bilateral facet arthropathy. This results in mild spinal canal and neuroforaminal stenosis. C5-6: Disc space narrowing, endplate spurs, uncovertebral hypertrophy and facet arthropathy result in moderate spinal canal and severe neuroforaminal stenosis bilaterally. C6-7: Disc space narrowing, endplate spurs, uncovertebral hypertrophy and facet arthropathy result in moderate severe spinal canal and severe neuroforaminal stenosis bilaterally. C7-T1: No significant abnormality. The facet joints are intact. The pharyngeal, hypopharyngeal, and laryngeal structures are unremarkable. There is no evidence of lymphadenopathy. The visualized portions of the lung apices are normal. IMPRESSION: No acute fracture or dislocation. Cervical spondylosis. Time:034 EXAM:XR Left Knee, 3 views FINDINGS: There are postsurgical changes present in the tibia with intramedullary wilder. No acute fracture or dislocation. No hardware complication noted. Old tibial and fibular shaft fractures are again demonstrated. Heterotopic calcification anterior to the knee joint is unchanged. IMPRESSION: No acute fracture or dislocation. Time:034 EXAM: XR Left Shoulder Complete, 2 or More Views FINDINGS: Advanced degenerative changes are present in the acromioclavicular joint. There are soft tissue calcifications adjacent to the acromion which could be secondary to calcific tendinitis. No acute fracture. No dislocation. IMPRESSION: No acute fracture dislocation. Possible calcific tendinitis. 0500 Patient resting comfortably, still highly intoxicated [address] Her pending sobriety Scribe Attestation: Documented by Rodrigo Davis, acting as a scribe for Scott Hamilton MD Provider Scribe Attestation: All medical record entries made by the Scribe were at my direction and personally dictated by me. I have reviewed the chart and agree that the record accurately reflects my personal performance of the history, physical exam, medical decision making, and the department course for this patient. I have also personally directed, reviewed, and agree with the discharge instructions and disposition. Disposition - Clinical Impression Clinical Impression: Alcohol abuse - Patient ED Disposition Is Patient to be Admitted: Transfer of Care - Disposition Disposition: Transfer of Care Disposition Time: 07:00 Condition: STABLE Forms: [facility] (Latvian) Patient Signed Over To: Kath Her Handoff Comments: pending sobriety and re-eval
--- NOTE | 2017-07-31 01:45 | CT ---
EXAM: CT Head Without Intravenous Contrast CLINICAL HISTORY: 52 years old, male; Injury or trauma; Fall; Initial encounter; Blunt trauma (contusions or hematomas); Additional info: Intox, head trauma TECHNIQUE: Axial computed tomography images of the head/brain without intravenous contrast. All CT scans at this facility use one or more dose reduction techniques, viz.: automated exposure control; ma/kV adjustment per patient size (including targeted exams where dose is matched to indication; i.e. head); or iterative reconstruction technique. Coronal and sagittal reformatted images were created and reviewed. COMPARISON: CT - HEAD W/O CONTRAST 2017-06-24 21:21 FINDINGS: Brain: There is mild diffuse cerebral atrophy present, consistent with this patient's age. No hemorrhage. No significant white matter disease. Ventricles: The ventricular system demonstrates mild diffuse compensatory enlargement. Bones/joints: Chronic nasal bone fracture. Soft tissues: Unremarkable. Sinuses: There is diffuse mucoperiosteal thickening in the left maxillary sinus, consistent with chronic sinusitis. Mastoid air cells: Unremarkable as visualized. No mastoid effusion. IMPRESSION: No acute intracranial findings. Chronic nasal bone fracture.
--- NOTE | 2017-07-31 02:07 | CT ---
EXAM: CT Cervical Spine Without Intravenous Contrast CLINICAL HISTORY: 52 years old, male; Injury or trauma; Fall; Initial encounter; Blunt trauma; Additional info: Intox, trauma TECHNIQUE: Axial computed tomography images of the cervical spine without intravenous contrast. All CT scans at this facility use one or more dose reduction techniques, viz.: automated exposure control; ma/kV adjustment per patient size (including targeted exams where dose is matched to indication; i.e. head); or iterative reconstruction technique. Coronal and sagittal reformatted images were created and reviewed. COMPARISON: CT - CERVICAL SPINE W/O CONTRAST 2017-06-15 23:49 FINDINGS: There is no evidence of acute fracture. There is no evidence of malalignment or dislocation. There are degenerative changes at multiple levels most severe at C2-3, C5-6 and C6-7. C2-3: Disc space narrowing, endplate spurs, uncovertebral hypertrophy and facet arthropathy result in moderate spinal canal and neuroforaminal stenosis bilaterally. C3-4: Mild central disc bulge. Bilateral facet arthropathy. This results in mild spinal canal and neuroforaminal stenosis. C4-5: Mild central disc bulge. Bilateral facet arthropathy. This results in mild spinal canal and neuroforaminal stenosis. C5-6: Disc space narrowing, endplate spurs, uncovertebral hypertrophy and facet arthropathy result in moderate spinal canal and severe neuroforaminal stenosis bilaterally. C6-7: Disc space narrowing, endplate spurs, uncovertebral hypertrophy and facet arthropathy result in moderate severe spinal canal and severe neuroforaminal stenosis bilaterally. C7-T1: No significant abnormality. The facet joints are intact. The pharyngeal, hypopharyngeal, and laryngeal structures are unremarkable. There is no evidence of lymphadenopathy. The visualized portions of the lung apices are normal. IMPRESSION: No acute fracture or dislocation. Cervical spondylosis.
--- NOTE | 2017-07-31 03:42 | RAD ---
EXAM: XR Left Knee, 3 views CLINICAL HISTORY: 52 years old, male; Pain; Knee; Left; Prior surgery; Surgery date: 6+ months; Additional info: Intox, fall TECHNIQUE: Three views of the left knee. COMPARISON: CR - KNEE 3 VIEWS LT 2017-06-15 22:54 FINDINGS: There are postsurgical changes present in the tibia with intramedullary wilder. No acute fracture or dislocation. No hardware complication noted. Old tibial and fibular shaft fractures are again demonstrated. Heterotopic calcification anterior to the knee joint is unchanged. IMPRESSION: No acute fracture or dislocation.
--- NOTE | 2017-07-31 03:45 | RAD ---
EXAM: XR Left Shoulder Complete, 2 or More Views CLINICAL HISTORY: 52 years old, male; Injury or trauma; Fall; Initial encounter; Blunt trauma (contusions or hematomas; Shoulder; Left; Additional info: Intox, fall TECHNIQUE: Two or more views of the left shoulder. COMPARISON: No relevant prior studies available. FINDINGS: Advanced degenerative changes are present in the acromioclavicular joint. There are soft tissue calcifications adjacent to the acromion which could be secondary to calcific tendinitis. No acute fracture. No dislocation. IMPRESSION: No acute fracture dislocation. Possible calcific tendinitis.
--- NOTE | 2017-07-31 07:33 | ED PDOC ---
- ECG O2 Sat by Pulse Oximetry: 97 (RA) Medical Decision Making Medical Decision Making: Received patient from Dr. Hamilton. Patient is pending sobriety. 10.15a - patient awake and alert. gait steady. tolerated breakfast. Disposition Doctor Will See Patient In The: Office - Clinical Impression Clinical Impression: Alcohol abuse - POA Present On Arrival: None - Disposition Disposition: Routine/Home Disposition Time: 10:37 Condition: STABLE Instructions: Alcohol Abuse and Alcoholism (DC) Forms: [employer] (French)
[2017-07-31 08:24] VITALS: RESP 17; TEMP 98.5
[2017-07-31 10:38] VITALS: O2SAT 97
[2017-07-31 10:43] VITALS: BP 148/88; PULSE 89
== END 2017-07-31 10:40 | disposition home or self-care (01) ==
LOC: H.ER 23:52
DX: F10.10 Alcohol abuse, uncomplicated (principal); S09.90XA Unspecified injury of head, initial encounter; S19.9XXA Unspecified injury of neck, initial encounter; W19.XXXA Unspecified fall, initial encounter; Y92.410 Unspecified street and highway as the place of occurrence of the external cause; E11.9 Type 2 diabetes mellitus without complications; F32.9 Major depressive disorder, single episode, unspecified; I10 Essential (primary) hypertension; J45.909 Unspecified asthma, uncomplicated

== ENCOUNTER 2017-08-04 01:50 | Emergency (ER) | payer MEDICAID ==
[2017-08-04 01:50] VITALS: BMI 24.7
[2017-08-04 02:11] VITALS: TEMP 98.4; O2SAT 100
[2017-08-04] MEDS ORDERED: Naproxen 500 MG TAB PO ONE ×2 (02:23→02:44)
--- NOTE | 2017-08-04 02:26 | ED PDOC ---
Upper Extremity Pain/Injury Time Seen by Provider: 08/04/17 02:15 Chief Complaint (Nursing): Lower Extremity Problem/Injury Chief Complaint (Provider): left shoulder pain History Per: Patient History/Exam Limitations: no limitations Onset/Duration Of Symptoms: Days Current Symptoms Are (Timing): Still Present Additional Complaint(s): 52 y/o male presents to ED with complaints of left shoulder pain x 2 days after a fall. Patient states he fell on his left side. Patient states he was at [facility] and they did "nothing" for him. Past Medical History Vital Signs: Last Vital Signs Temp 98.4 F 08/04/17 02:07 Pulse 108 H 08/04/17 02:07 Resp 18 08/04/17 02:07 BP 155/91 H 08/04/17 02:07 Pulse Ox 100 08/04/17 02:07 - Medical History PMH: Asthma, Depression, Diabetes, Gastritis, Gastrointestinal Ulcer, HTN, Pneumonia, Seizures Denies: Chronic Kidney Disease - Surgical History Surgical History: Endoscopy Denies: Appendectomy - Family History Family History: States: Unknown Family Hx - Immunization History Hx Tetanus Toxoid Vaccination: No Hx Influenza Vaccination: Yes Hx Pneumococcal Vaccination: No - Home Medications Home Medications: Ambulatory Orders Medication Instructions Recorded No Known Home Med 08/02/17 - Allergies Allergies/Adverse Reactions: Allergies Allergy/AdvReac Type Severity Reaction Status Date / Time No Known Allergies Allergy Verified 08/02/17 23:58 Review of Systems ROS Statement: Except As Marked, All Systems Reviewed And Found Negative Musculoskeletal: Positive for: Shoulder Pain (left), Leg Pain (left knee) Physical Exam - Reviewed Nursing Documentation Reviewed: Yes Vital Signs Reviewed: Yes - Physical Exam Appears: Positive for: Well, Non-toxic, No Acute Distress Head Exam: Positive for: ATRAUMATIC, NORMAL INSPECTION, NORMOCEPHALIC Skin: Positive for: Normal Color Eye Exam: Positive for: Normal appearance ENT: Positive for: Normal ENT Inspection Cardiovascular/Chest: Positive for: Regular Rate, Rhythm Respiratory: Positive for: Normal Breath Sounds Gastrointestinal/Abdominal: Positive for: Normal Exam Back: Positive for: Normal Inspection Extremity: Positive for: Normal ROM Neurologic/Psych: Positive for: Alert, Oriented - ECG ECG: Positive for: Viewed By Me (reviewed by ED attending) ECG Rhythm: Positive for: Sinus Rhythm O2 Sat by Pulse Oximetry: 100 - Progress ED Course And Treament: chart reviewed: patient had left knee xray, and CT head/facial bones at [facility] 08/02, and left shoulder xray at [facility] ED on 08/03. Patient educated on all of theses findings, Naproxen ordered Advised follow up PMD/ortho tylenol/ibuprofen PRN pain Return precautions given Disposition - Clinical Impression Clinical Impression: Shoulder pain, left, Left knee pain - Patient ED Disposition Is Patient to be Admitted: No Counseled Patient/Family Regarding: Diagnosis, Need For Followup - Disposition Referrals: [facility] [place] [Outside] Disposition: Routine/Home Disposition Time: 03:00 Condition: IMPROVED Instructions: Chronic Knee Pain, Shoulder Pain (DC)
[2017-08-04 03:34] VITALS: BP 111/72; PULSE 100; RESP 16
== END 2017-08-04 04:17 | disposition home or self-care (01) ==
LOC: H.ER 01:50
DX: M25.512 Pain in left shoulder (principal); M25.562 Pain in left knee; W19.XXXA Unspecified fall, initial encounter; Y92.89 Other specified places as the place of occurrence of the external cause; E11.9 Type 2 diabetes mellitus without complications; F32.9 Major depressive disorder, single episode, unspecified; I10 Essential (primary) hypertension; J45.909 Unspecified asthma, uncomplicated

== ENCOUNTER 2017-08-20 00:52 | Emergency (ER) | payer MEDICAID ==
[2017-08-20 00:53] VITALS: BMI 24.3
--- NOTE | 2017-08-20 03:45 | ED PDOC ---
HPI: Psych/Substance Abuse Time Seen by Provider: 08/20/17 01:21 Chief Complaint (Nursing): Lower Extremity Problem/Injury Chief Complaint (Provider): etoh History Per: Patient, EMS Additional Complaint(s): 52 y/o male brought in by EMS for public alcohol intoxication. Patient ambluates with cane, complaints of chronic left leg pain. Denies fall, numbness /weakness left lower extremity, limitation of movement. Patient requesting food and the light to be turned off upon entering exam room. Past Medical History Reviewed: Historical Data, Nursing Documentation, Vital Signs Vital Signs: Last Vital Signs Temp 99.3 F 08/20/17 00:54 Pulse 93 H 08/20/17 03:30 Resp 18 08/20/17 00:54 BP 110/85 08/20/17 00:54 Pulse Ox 96 08/20/17 03:30 - Medical History PMH: Asthma, Depression, Diabetes, Gastritis, Gastrointestinal Ulcer, HTN, Pneumonia, Seizures Denies: Chronic Kidney Disease - Surgical History Surgical History: Endoscopy Denies: Appendectomy - Family History Family History: States: Unknown Family Hx - Immunization History Hx Tetanus Toxoid Vaccination: No Hx Influenza Vaccination: Yes Hx Pneumococcal Vaccination: No - Home Medications Home Medications: Ambulatory Orders Medication Instructions Recorded No Known Home Med 08/02/17 - Allergies Allergies/Adverse Reactions: Allergies Allergy/AdvReac Type Severity Reaction Status Date / Time No Known Allergies Allergy Verified 08/16/17 03:01 Review of Systems ROS Statement: Except As Marked, All Systems Reviewed And Found Negative Physical Exam - Reviewed Nursing Documentation Reviewed: Yes Vital Signs Reviewed: Yes - Physical Exam Appears: Positive for: Well, Non-toxic, No Acute Distress (sleeping) Head Exam: Positive for: ATRAUMATIC, NORMAL INSPECTION, NORMOCEPHALIC Skin: Positive for: Normal Color Eye Exam: Positive for: Normal appearance Cardiovascular/Chest: Positive for: Regular Rate, Rhythm Respiratory: Positive for: Normal Breath Sounds Gastrointestinal/Abdominal: Positive for: Normal Exam Extremity: Positive for: Normal ROM Neurologic/Psych: Positive for: Alert, Oriented - ECG O2 Sat by Pulse Oximetry: 96 - Progress ED Course And Treament: accucheck 5:30 Patient awake, alert, oriented x3. Ambulating at baseline Stable for discharge Disposition - Clinical Impression Clinical Impression: Alcohol intoxication, Chronic pain of left lower extremity - Patient ED Disposition Is Patient to be Admitted: No - Disposition Disposition: Routine/Home Disposition Time: 05:30 Condition: STABLE Instructions: Alcohol Abuse and Alcoholism (DC), Chronic Pain
[2017-08-20 06:13] VITALS: BP 140/81; PULSE 89; RESP 17; TEMP 98
[2017-08-21 01:52] VITALS: O2SAT 96
== END 2017-08-20 06:11 | disposition home or self-care (01) ==
LOC: H.ER 00:52
DX: F10.129 Alcohol abuse with intoxication, unspecified (principal); E11.9 Type 2 diabetes mellitus without complications; F32.9 Major depressive disorder, single episode, unspecified; G89.29 Other chronic pain; I10 Essential (primary) hypertension; J45.909 Unspecified asthma, uncomplicated

== ENCOUNTER 2017-08-21 23:54 | Emergency (ER) | payer MEDICAID ==
[2017-08-21 23:55] VITALS: BMI 24.3
[2017-08-21 23:59] VITALS: TEMP 97.5
--- NOTE | 2017-08-22 00:49 | ED PDOC ---
HPI: General Adult Time Seen by Provider: 08/22/17 00:22 Chief Complaint (Nursing): Lower Extremity Problem/Injury History Per: Patient, Family (mother) Additional Complaint(s): As per pt.'s brother pt. was at home drinking alcohol. States pt. was sitting down drinking when he began to fall asleep and fell to the ground and hit his head. States that pt. did not lose consciousness and was talking to him the entire time. Pt. offers no complaints at this time. Denies leg pain contrary to triage note. Denies chest pain, SOB, anticoagulant use, incontinence, seizure like activity. Past Medical History Reviewed: Historical Data, Nursing Documentation, Vital Signs Vital Signs: Last Vital Signs Temp 97.5 F L 08/21/17 23:56 Pulse 83 08/22/17 04:15 Resp 16 08/22/17 04:15 BP 138/78 08/22/17 04:15 Pulse Ox 98 08/22/17 04:15 - Medical History PMH: Asthma, Depression, Diabetes, Gastritis, Gastrointestinal Ulcer, HTN, Pneumonia, Seizures Denies: Chronic Kidney Disease - Surgical History Surgical History: Endoscopy Denies: Appendectomy - Family History Family History: States: No Known Family Hx - Immunization History Hx Tetanus Toxoid Vaccination: No Hx Influenza Vaccination: Yes Hx Pneumococcal Vaccination: No - Home Medications Home Medications: Ambulatory Orders Medication Instructions Recorded No Known Home Med 08/02/17 - Allergies Allergies/Adverse Reactions: Allergies Allergy/AdvReac Type Severity Reaction Status Date / Time No Known Allergies Allergy Verified 08/21/17 23:56 Review of Systems ROS Statement: Except As Marked, All Systems Reviewed And Found Negative Physical Exam - Physical Exam Appears: Positive for: Well, Non-toxic, No Acute Distress Head Exam: Positive for: ATRAUMATIC, NORMAL INSPECTION, NORMOCEPHALIC Skin: Positive for: Normal Color, Warm. Negative for: Rash Eye Exam: Positive for: Normal appearance, EOMI, PERRL. Negative for: Periorbital swelling, Periorbital tenderness ENT: Positive for: Normal ENT Inspection, TM Is/Are (no hemotympanum b/l) Neck: Positive for: Normal, Painless ROM Cardiovascular/Chest: Positive for: Regular Rate, Rhythm, Chest Non Tender Respiratory: Positive for: CNT, Normal Breath Sounds Gastrointestinal/Abdominal: Positive for: Normal Exam, Soft. Negative for: Tenderness Back: Positive for: Normal Inspection. Negative for: L CVA Tenderness, R CVA Tenderness Extremity: Positive for: Normal ROM Neurologic/Psych: Positive for: Alert, Oriented. Negative for: Aphasia, Facial Droop - Laboratory Results Result Diagrams: 08/22/17 01:15 08/22/17 01:15 - ECG O2 Sat by Pulse Oximetry: 100 - Progress ED Course And Treament: Labs, CT head w/o contrast ordered. CT head w/o contrast: negative. On re-evaluation, AOx3. Gait steady unassisted. Clinically sober. Informed of results. Disposition - Clinical Impression Clinical Impression: Alcohol intoxication, Head injury - Patient ED Disposition Is Patient to be Admitted: No - Disposition Referrals: [facility] [Outside] Disposition: Routine/Home Disposition Time: 05:25 Condition: IMPROVED Instructions: Minor Head Injury (DC), Alcohol Abuse and Alcoholism (DC) Forms: [facility] (Portuguese) Print Language: LITHUANIAN
[2017-08-22 01:19] LABS: BASO # 0.1 K/uL (0.0-0.2); BASO % 2.9 % (0.0-2.0); EOS # 0.1 K/uL (0.0-0.7); EOS % 2.1 % (0.0-4.0); HEMOGLOBIN 9.6 g/dL (12.0-18.0); LYMPH # 1.3 K/uL (1.0-4.3); LYMPH % 43.6 % (20.0-40.0); MEAN CELL VOLUME 98.3 fl (80.0-94.0); MEAN CORPUSCULAR HGB CONC 33.5 g/dL (33.0-37.0); MEAN PLATELET VOLUME 5.8 fl (7.2-11.7); MONO # 0.2 K/uL (0.0-0.8); MONO % 6.1 % (0.0-10.0); NEUT # 1.4 K/uL (1.8-7.0); NEUT % 45.3 % (50.0-75.0); NRBC % 0.1 % (0.0-0.0); RBC 2.91 Mil/uL (4.40-5.90); RED CELL DISTRIBUTION WIDTH 18.2 % (11.5-14.5)
[2017-08-22 01:36] LABS: ALB/GLOB RATIO 1.2 (1.0-2.1); ALBUMIN 3.5 g/dL (3.5-5.0); ALT/SGPT 41 U/L (21-72); AST/SGOT 57 U/L (17-59); BLOOD UREA NITROGEN 4 mg/dl (9-20); GFR AFRICAN-AMERICAN > 60; GFR NON-AFRICAN AMERICAN > 60
--- NOTE | 2017-08-22 02:32 | CT ---
EXAM: CT Head Without Intravenous Contrast EXAM DATE/TIME: 08/22/2017 12:42 AM CLINICAL HISTORY: 52 years old, male; Injury or trauma; Fall; Initial encounter; Blunt trauma (contusions or hematomas); Additional info: Head injury TECHNIQUE: Axial computed tomography images of the head/brain without intravenous contrast. All CT scans at this facility use one or more dose reduction techniques, viz.: automated exposure control; ma/kV adjustment per patient size (including targeted exams where dose is matched to indication; i.e. head); or iterative reconstruction technique. Coronal and sagittal reformatted images were created and reviewed. COMPARISON: CT - HEAD W/O CONTRAST 2017-07-31 00:41 FINDINGS: There is subcutaneous soft tissue swelling in the frontal regions and the left parietal region. Again seen is atrophy and mild chronic small vessel ischemic disease. No intracranial hemorrhage. Mucosal thickening of the left maxillary sinus similar to prior. Chronic nasal bone fractures are again identified. Mild chronic deformity medial right orbital wall. IMPRESSION: No acute intracranial injury.
[2017-08-22 04:17] VITALS: BP 138/78; PULSE 83; RESP 16
[2017-08-22 05:26] VITALS: O2SAT 100
== END 2017-08-22 06:10 | disposition home or self-care (01) ==
LOC: H.ER 23:54
DX: F10.129 Alcohol abuse with intoxication, unspecified (principal); S09.90XA Unspecified injury of head, initial encounter; W19.XXXA Unspecified fall, initial encounter; Y92.89 Other specified places as the place of occurrence of the external cause; E11.9 Type 2 diabetes mellitus without complications; F32.9 Major depressive disorder, single episode, unspecified; I10 Essential (primary) hypertension; J45.909 Unspecified asthma, uncomplicated